=== PATIENT | female | born 1935 | race Caucasian/White ===

== ENCOUNTER → 2016-09-26 | Outpatient (CLI) | payer OTHER, BC ==
[~2016-09-26] MED LIST: ACET-1138 PO; ACET-1256 PO; ASPEC81 PO; ATOR10TA88 PO; ATV1 PO; CALCTAB7 PO; CEPH500C2 PO; CLB/200 PO; CLB200 PO; CLTP PO; COEN1CAP17 PO; CRAN1CAP15 PO; GABA-113 PO; LISI-461 PO; LORA-741 PO; MULT-506 PO; MULTCAP7 PO; OMEG10007 PO; ONDA4TAB10 SL; ONDA8TAB6 PO; OXYC1TAB3 PO; OXYSR10 PO; RXC5 PO; TRAM-10 PO; TRIA1SPR4 INH; ZNTT/150 PO
[2016-09-26 18:36] LABS: CHOLESTEROL/HDL RATIO 1.9
== END | disposition home or self-care (01) ==
LOC: C.LABMFLN 12:05
PROVIDERS: ATTEND Family Medicine
DX: E78.5 Hyperlipidemia, unspecified (principal)

== ENCOUNTER → 2016-11-19 | Outpatient (CLI) | payer OTHER, BC ==
--- NOTE | 2016-11-20 14:42 | CODING QUERY NO DIAGNOSIS ---
TREATMENT RENDERED WITHOUT A DIAGNOSIS 36 To promote full compliance with coding requirements relating to patient care, physician participation is requested in all cases of administrative manager uncertainty. Please assist us with providing a diagnosis/symptom for the test(s) below: A diagnosis/symptom was not documented on your Order. A valid diagnosis/symptom is required to bill all insurances. Please remember that we are unable to code a diagnosis of rule out, probable, possible, questionable, or suspected. DOS 11/19/16 Tests that require a diagnosis: * CBC W/AUTO DIFF DIAGNOSIS: * ALBUMIN DIAGNOSIS: * PARTIAL RENAL PROFILE DIAGNOSIS: * PTT DIAGNOSIS: * UA CLEAN CATCH DIAGNOSIS: * HEMOGLOBIN A1C DIAGNOSIS: * URINE CULTURE DIAGNOSIS: Provider Signature: Date: Thank you Corie [facility] Once completed, please kindly fax back to [phone] For questions please call [phone]
--- NOTE | 2016-12-01 14:14 | CODING QUERY MEDICAL NECESSITY ---
CQSUPPORTING DIAGNOSIS NEEDED A supporting diagnosis is required for the test/procedure performed on this patient in order for us to be reimbursed by the patient's insurance. Please provide a supporting diagnosis for the following test/procedure listed below next to the test name along with your signature. *If there is no additional diagnosis for this patient that would support the following test/procedure please document that below next to the test/procedure. Test(s)/Procedure(s) that require a supporting diagnosis: DOS 11/19/16 GLYCATED HEMOGLOBIN TEST URINE CULTURE TEST TEST ORDERED BY VINITA SMITH Provider Signature: Date: Thank you [facility] Once completed, please kindly fax back to [phone] For questions please call [phone]
== END | disposition home or self-care (01) ==
LOC: C.LABMFLN 11:21
PROVIDERS: ATTEND Orthopaedic Surgery
DX: Z01.818 Encounter for other preprocedural examination (principal)

== ENCOUNTER → 2016-12-04 | Outpatient (CLI) | payer OTHER, BC ==
--- NOTE | 2016-12-18 07:33 | History & Physical Bridge Note ---
H&P Re-Evaluation Bridge Note: I have examined the patient, reviewed the History & Physical and in the interval since the performance of the History & Physical I have noted the following changes of clinical significance: No changes noted
== END | disposition home or self-care (01) ==
LOC: C.LABMFLN 08:31
PROVIDERS: ATTEND Family Medicine
DX: N39.0 Urinary tract infection, site not specified (principal)

== ENCOUNTER 2016-12-18 10:21 | Inpatient (IN) | payer OTHER, BC ==
[2016-11-19 18:04] LABS: BASO % 0.1 %; BASO ABS # 0.01 K/uL (0-0.2); COMPLETE YES; EOS % 2.9 %; HEMATOCRIT 39.3 % (37-47); IG% 0.1 %; LYMPH % 23.1 %; LYMPH ABS # 1.84 K/uL (1.2-3.4); MEAN CELL VOLUME 87.5 fL (80-100); MEAN CORPUSCULAR HEMOGLOBIN 29.6 pg (25-34); MEAN CORPUSCULAR HGB CONC 33.8 g/dl (32-36); MEAN PLATELET VOLUME 9.2 fL (7.4-10.4); MONO % 7.5 %; NEUT % 66.3 %; PLATELET COUNT 195 K/uL (130-400); RED BLOOD COUNT 4.49 M/uL (4.2-5.4); URINE APPEARANCE CLEAR (CLEAR); URINE BILIRUBIN NEG (NEG); URINE COLOR DK YELLOW; URINE EPITHELIAL CELL AUTO 0-5 /lpf (0-5); URINE NITRITE NEG (NEG); URINE PH 6.5 (4.5-7.5); URINE SPECIFIC GRAVITY 1.001 (1.000-1.030); UROBILINOGEN NEG (NEG); WHITE BLOOD COUNT 7.95 K/uL (4.8-10.8)
[2016-11-19 18:05] LABS: PARTIAL THROMBOPLASTIN RATIO 1.1; PROTHROMBIN TIME (PATIENT) 10.7 SECONDS (9.0-12.0)
[2016-11-19 18:07] LABS: BLOOD UREA NITROGEN 17 mg/dl (7-18); BUN/CREATININE RATIO 22.3 (10-20); CALCIUM 8.7 mg/dl (8.5-10.1); CARBON DIOXIDE 29 mmol/L (21-32); CHLORIDE 102 mmol/L (98-107); CREATININE 0.74 mg/dl (0.60-1.20); GLUCOSE 68 mg/dl (70-99); POTASSIUM 3.7 mmol/L (3.5-5.1); SODIUM 139 mmol/L (136-145)
[2016-11-19 18:15] LABS: MANUAL MICROSCOPIC REQUIRED? NO; REVIEW REQ? NO
[2016-11-20 06:06] LABS: ESTIMATED AVERAGE GLUCOSE 126 mg/dl; HA1C FLAG Normal (Normal)
[2016-12-08 08:21] VITALS: BMI 36.0
--- NOTE | 2016-12-08 10:22 | PAT Medication Instructions ---
Service Date Dec 08, 2016. Current Home Medication List Atorvastatin (Lipitor), 10 MG PO QAM Calcium/Vitamin D (Caltrate 600 Plus *), 1 TAB PO BID Celecoxib (Celebrex *), 200 MG PO QAM Coenzyme Q10 (Ubidecarenone) (Co Q 10), 100 MG PO QAM Cranberry-Vitamin C-Vitamin E (Cranberry), 1 TAB PO BID Fish Oil (Spring-3), 1 CAP PO QAM Gabapentin (Neurontin), 300 MG PO TID Lisinopril (Zestril), 10 MG PO HS Lorazepam (Ativan *), 0.5 MG PO DAILY PRN Multiple Vitamins W/ Minerals (Eye Vitamins), 1 TAB PO QAM Multivitamin (Multivitamin), 1 TAB PO QAM Oxycodone Ir (Roxicodone Ir), 5 MG PO Q4H PRN for Severe Pain Ranitidine (Zantac), 150 MG PO BID Tramadol (Ultram), 50 MG PO Q8H PRN for Pain Triamcinolone Acetonide (Nasal (Nasacort Allergy 24Hr), 1 SPRAY INH HS Medication Instructions For Your Scheduled Surgery - Hold the following medications 2 weeks prior to surgery: Coenzyme Q10 (Ubidecarenone) (Co Q 10), 100 MG PO QAM Cranberry-Vitamin C-Vitamin E (Cranberry), 1 TAB PO BID Fish Oil (Spring-3), 1 CAP PO QAM - Hold the following medications per surgeon's instructions: Celecoxib (Celebrex *), 200 MG PO QAM - Hold the following medications the morning of surgery: Calcium/Vitamin D (Caltrate 600 Plus *), 1 TAB PO BID Multiple Vitamins W/ Minerals (Eye Vitamins), 1 TAB PO QAM Multivitamin (Multivitamin), 1 TAB PO QAM - Take the following medications the morning of surgery with a sip of water: Atorvastatin (Lipitor), 10 MG PO QAM Ranitidine (Zantac), 150 MG PO BID Gabapentin (Neurontin), 300 MG PO TID Oxycodone Ir (Roxicodone Ir), 5 MG PO Q4H PRN for Severe Pain (may take if needed up to 4 hours prior to surgery) Tramadol (Ultram), 50 MG PO Q8H PRN for Pain (may take if needed up to 4 hours prior to surgery) Lorazepam (Ativan *), 0.5 MG PO DAILY PRN - Take the following medications as scheduled the night before surgery: Calcium/Vitamin D (Caltrate 600 Plus *), 1 TAB PO BID Ranitidine (Zantac), 150 MG PO BID Gabapentin (Neurontin), 300 MG PO TID Oxycodone Ir (Roxicodone Ir), 5 MG PO Q4H PRN for Severe Pain Tramadol (Ultram), 50 MG PO Q8H PRN for Pain Lorazepam (Ativan *), 0.5 MG PO DAILY PRN Triamcinolone Acetonide (Nasal (Nasacort Allergy 24Hr), 1 SPRAY INH HS - Do not take the following medications the night before surgery: Lisinopril (Zestril), 10 MG PO HS If you have any questions please call us at [phone] or [phone] or [phone]
--- NOTE | 2016-12-17 12:44 | HISTORY & PHYSICAL EXAMINATION ---
DATE OF ADMISSION: 12/18/2016 CHIEF COMPLAINT: Left knee pain. HISTORY OF PRESENT ILLNESS: The patient is an 81-year-old female with known severe osteoarthritis about her right knee. She had a previous successful left total knee arthroplasty approximately 7 years ago. She does complain of some pes anserinus symptoms about the left knee which will be injected at the time of her right knee surgery. She has had previous corticosteroid injections in her right knee and now desires to proceed with right total knee arthroplasty. PAST MEDICAL HISTORY: Hypertension, depression, esophageal reflux, hyperlipidemia, osteoarthritis. PAST SURGICAL HISTORY: Left knee as above, cholecystectomy, lumbar laminectomy, venous stripping. MEDICATIONS: Nasonex 50 mcg 2 sprays each nostril once daily, lisinopril 10 mg daily, ranitidine HCL 150 mg twice daily, lorazepam 1 mg daily p.r.n., Celebrex 200 mg daily, tramadol 50 mg 4 times daily p.r.n., VESIcare 5 mg daily, atorvastatin calcium 10 mg daily, CoQ10 100 mg daily, fish oil 1000 mg daily, gabapentin 300 mg 3 times daily, oxycodone 5 mg q.i.d. p.r.n., calcium plus D twice daily, cranberry 500 mg p.o. b.i.d., multivitamin daily. ALLERGIES: BIAXIN, AMOXICILLIN. SOCIAL HISTORY AND REVIEW OF SYSTEMS: Noncontributory. PHYSICAL EXAMINATION: GENERAL: Well-nourished, well-developed elderly female who appears her stated age. HEAD, EYES, EARS, NOSE, AND THROAT: Normocephalic, atraumatic, extraocular movements intact, oropharynx pink and moist. NECK: Supple without adenopathy. LUNGS: Clear to auscultation bilaterally. HEART: Regular rate and rhythm. ABDOMEN: Soft, nontender, nondistended. EXTREMITIES: The upper extremity within normal limits. The patient walks with an obvious antalgic gait. She has a valgus appearing knee. Her range of motion from 0-110 degrees. X-RAYS: X-rays were reviewed. She has a valgus aligned knee. She has bone on bone arthritis of the lateral compartment. She has moderate osteophyte formation about the patellofemoral joint as well. ASSESSMENT: Right knee degenerative joint disease. PLAN: Risks versus benefits were discussed. Consent was obtained. The patient's primary care physician is Dr. Mercedes Barton from [facility]. Will proceed with right total knee arthroplasty and left knee pes anserine bursa injection upon preoperative workup and medical clearance.
[~2016-12-18] VITALS: Ht 157.5 cm; Wt 90.9 kg
[2016-12-18] VITALS (7 sets, daily range): BP systolic 101–143; BP diastolic 61–71; PULSE 84–102; TEMP 36.3–37.1; O2SAT 90–97; Ht 157.5 cm; Wt 90.9 kg
[~2016-12-18 10:21] MED LIST changes: -ACET-1138 PO; -ACET-1256 PO; +ACETAMINOPHEN 500 MG TAB PO SCH; -ASPEC81 PO; +ATOR10TA82 PO; -ATOR10TA88 PO; +BUPIVACAINE 0.5 % 5 MG/1 ML PF 10ML VIAL ONE; -CALCTAB7 PO; -CEPH500C2 PO; -CLB/200 PO; +CLINDAMYCIN 600 MG/54 ML D5W 54 ML IV SCH; +CeleBREX 200 MG CAP PO SCH; +DEXAMETHASONE 4 MG TAB PO SCH; +FAMOTIDINE 20 MG TAB PO SCH; -GABA-113 PO; +GABAPENTIN 300 MG CAP PO SCH; +LACTATED RINGER'S 1000ML 1,000 ML IV SCH; +LACTATED RINGER'S 1000ML IV SCH; -LISI-461 PO; -LORA-741 PO; +METOCLOPRAMIDE HCL 10 MG TAB PO SCH; +MISSING PHYSICIAN SIGNATURE ON ORDER SCH; -MULT-506 PO; -MULTCAP7 PO; -ONDA4TAB10 SL; -ONDA8TAB6 PO; +OXYCODONE HCL 10 MG TABCR (OXYCONTIN) PO SCH; -OXYSR10 PO; +ROPIVACAINE 5MG/ML 30 ML 150 MG, BUPIVACAINE/EPINEPHR 0.5% MPF 30 ML, KETOROLAC TROMETH... INFIL SCH; -RXC5 PO; -TRIA1SPR4 INH; -ZNTT/150 PO
[2016-12-18] MEDS ORDERED: MIDAZOLAM HCL 1 MG/ML 2ML VIAL ONE (10:43)
[2016-12-18] MEDS ORDERED: PROPOFOL IV EMULSION 10 MG/ML 20 ML VIAL IV ONE (10:43)
[2016-12-18] MEDS ORDERED: LIDOCAINE HCL 2% 2 ML VIAL (20MG/ML) ONE (10:43)
[2016-12-18] MEDS ORDERED: FENTANYL CITRATE INJ 50 MCG/1 ML 2 ML VIAL ONE (10:43)
[2016-12-18] MEDS ORDERED: GLYCOPYRROLATE INJ 0.2 MG/ML VIAL ONE (10:45)
[2016-12-18] MEDS ORDERED: GABAPENTIN 300 MG CAP PO ONE (10:50)
[2016-12-18] MEDS ORDERED: ORTHO JOINT ANESTHETIC ONE (11:58)
[2016-12-18] MEDS ORDERED: POVIDONE-IODINE OP SOLN 30 ML BTL ONE (11:58)
[2016-12-18] MEDS ORDERED: BACITRACIN 50000 UNIT VIAL ONE (11:59)
[2016-12-18] MEDS ORDERED: METHYLPREDNISOLONE ACETATE 80 MG/ML VIAL ONE (11:59)
[2016-12-18] MEDS ORDERED: BUPIVACAINE 0.5 % 5 MG/1 ML MPF 30ML VIAL ONE (12:00)
[2016-12-18] MEDS: TRANEXAMIC ACID INJ 1,000 MG in SODIUM CHLORIDE 0.9% 100ML 100 ML IV SCH ×2 (12:08→16:11)
[2016-12-18] MEDS ORDERED: FENTANYL CITRATE INJ 50 MCG/1 ML 2 ML VIAL IV PRN (12:15)
[2016-12-18] MEDS ORDERED: MEPERIDINE HCL 25 MG/ML CARP IV PRN (12:15)
[2016-12-18] MEDS ORDERED: MoRPHine SULFATE 10 MG/ML CARP/VIAL IV PRN ×2 (12:15→15:00)
[2016-12-18] MEDS ORDERED: ATROPINE SULFATE 0.1 MG/ML 5ML SYR IV PRN (12:15)
[2016-12-18] MEDS ORDERED: EpHEDrine SULFATE INJ 50 MG/ML AMP IV PRN (12:15)
[2016-12-18] MEDS ORDERED: ONDANSETRON INJ 2 MG/ML 2 ML VIAL IV PRN ×2 (12:15→14:30)
[2016-12-18] MEDS ORDERED: PHENYLEPHRINE 100MCG/ML 5ML SYR ONE (13:06)
--- NOTE | 2016-12-18 13:53 | [facility] Post Operative Brief Note ---
Immediate Operative Summary Operative Date Dec 18, 2016. Pre-Operative Diagnosis Right Knee Degenerative Joint Disease Post-Operative Diagnosis Right Knee Degenerative Joint Disease and Pes bursitis left knee Procedure(s) Performed Right Total Knee Arthroplasty, Left Knee Pes Bursa Injection Surgeon Dr. aPrish Nieto Sales Estimator Surgeon(s) Raimundo Rogers PA-C Estimated Blood Loss 10ML Findings Valgus deformity wirh severe djd Specimens A. Right Knee bone and tissue Disposition Recovery Room / PACU
[2016-12-18] MEDS ORDERED: ZOLPIDEM TARTRATE 5 MG TAB PO PRN (14:30)
[2016-12-18] MEDS ORDERED: METOCLOPRAMIDE HCL INJ 5 MG/ML 2 ML VIAL IV PRN (14:30)
[2016-12-18] MEDS ORDERED: LORAZEPAM 1 MG TAB PO PRN (14:30)
[2016-12-18] MEDS ORDERED: ALUMINUM/MAGNESIUM/SIMETH (MAALOX MAX) 30 ML UDC PO PRN (14:30)
[2016-12-18] MEDS ORDERED: MoRPHine SULFATE 2 MG/ML CARP IV PRN (14:30)
--- NOTE | 2016-12-18 14:41 | Anesthesiology Progress Note ---
Anesthesia Post Op Note Date & Time Dec 18, 2016 at 14:40 Vital Signs Pain Intensity: 0 Vital Signs Past 12 Hours Date Time Temp Pulse Resp B/P Pulse Ox O2 Delivery O2 Flow Rate FiO2 12/18/16 14:30 88 16 118/60 100 Mask 10 12/18/16 14:25 36.9 88 16 115/57 100 Mask 10 12/18/16 11:11 36.7 86 22 143/71 96 Room Air Notes Mental Status: alert / awake / arousable, participated in evaluation Pt Amnestic to Procedure: Yes Nausea / Vomiting: adequately controlled Pain: adequately controlled Airway Patency, RR, SpO2: stable & adequate BP & HR: stable & adequate Hydration State: stable & adequate Neuraxial Anesthesia: was administered, sensory block is resolving Anesthetic Complications: no major complications apparent
[2016-12-18] MEDS ORDERED: MoRPHine SULFATE 4 MG/ML 1 ML CARP\\VIAL IV PRN (15:00)
--- NOTE | 2016-12-18 15:03 | DIAGNOSTIC IMAGING REPORT ---
RIGHT KNEE 2 VIEWS History: Right total knee arthroplasty. Degenerative arthritis. Postop. FINDINGS: The patient is status post a right total knee arthroplasty. The hardware is intact. No fracture or dislocation. Skin carlos and surgical drains are in place. IMPRESSION: Right total knee arthroplasty. No evidence for hardware complication. Electronically signed by: Uri Andersen M.D. 12/18/2016 3:00 PM Dictated Date/Time: 12/18/2016 3:00 PM
--- NOTE | 2016-12-18 15:43 | OPERATIVE REPORT ---
DATE OF OPERATION: 12/18/2016 PREOPERATIVE DIAGNOSES: Degenerative joint disease, right knee and pes anserinus bursitis, left knee. POSTOPERATIVE DIAGNOSES: Degenerative joint disease, right knee and pes anserinus bursitis, left knee. PROCEDURE: Injection left knee and right total knee arthroplasty. SURGEON: Dr. Nieto. ANESTHESIA: Spinal. COMPLICATIONS: None. OPERATION AND FINDINGS: Following induction of spinal anesthesia, the patient's right leg was prepped and draped in the usual sterile manner. Limb was exsanguinated with an Esmarch bandage and tourniquet was inflated to 350 mmHg. A longitudinal incision was made anteriorly. Subcutaneous tissue was sharply dissected. Electrocautery was used for hemostasis. Prepatellar bursa was incised and median parapatellar incision was performed. Patella was everted and the knee was flexed. Fat pad was removed to aid in visualization and the anterior and posterior cruciate ligaments were removed. The medial face of the tibia was cleared of soft tissue first with a Bovie and a Diallo elevator. This tissue was retracted posteriorly using a blunt Hohmann. A Valdovinos retractor was used to expose the synovium above on the anterior aspect of the femur and this was removed down to bone. The PSI guide was placed on the distal femur and two pins were placed anteriorly and kept in position and two additional pins were placed distally and removed. The distal femoral cutting block was placed in position and the distal femoral cut was used in the +0 setting. Next, the cutting block was removed and the Femoral size 3 block was placed in the distal end of the femur. Care was taken to ensure appropriate external rotation and feeler gauge was used to ensure no notching would occur. The femoral block was centered on the distal femur and in the medial and lateral direction and was fixed using two bone screws. The gold pins were then removed. The oscillating saw was used to create the bone cuts and the distal femoral cutting block was removed and the reciprocating saw was used to further trim the femoral cuts as well as a deep in the area for the trochlear groove. Next, posterior condyle remnants were removed. Following this, a meniscal clamp and knife were utilized to remove the anterior portion of both medial and lateral meniscus. The proximal tibia PSI guide was placed into position and the proximal tibial cutting guide was screwed into position. The extra medullary alignment guide was utilized to ensure appropriate alignment. The proximal tibia was cut and the proximal tibial cutting block was removed and this bone fragment was removed. The appropriate guide was used to perform the notch cut on the distal femur and a lamina screedman and a cochlear knife were utilized to finish both medial and lateral meniscectomies to remove any remnants of the posterior or anterior cruciate ligaments. Following this, the distal femoral component was impacted into position and blunt Karl was used to sublux the tibia anteriorly. The proximal tibia was sized and a tibial size 3 tibial tray was chosen as the size to be used. This was put into position and appropriate external rotation and a double check with extramedullary alignment guide was performed. The canal for the tibial stem was prepared first with a 17 mm drill and then the punch and a mallet and the trial tibial poly was placed. A tibial poly 3 was chosen the size to be used. It was brought to extension and the patella was prepared with the patellar reamer. A patella size 33 component was chosen the size to be used. The trial component was placed and knee was taken through a full range of motion and there was found to be no lateral subluxation of the tibia. No lateral release was required. The trials were all removed. The final components were obtained and assembled. Cement was mixed. The knee was thoroughly irrigated and the ortho mix was injected about the knee joint. The final components were cemented into position. After thoroughly suctioning and drying the bone ends, all excess cement was removed. The knee was held in extension while the cement hardened. The wound was irrigated and closed over a Hemovac drain. #1 Vicryl was used to close the extensor mechanism. Subcutaneous tissues closed using 0 Dexon. Skin was closed with carlos. Sterile dressing of Adaptic, 4 x 4s, sterile Webril, and Jesus Manuel was applied. The patient tolerated the procedure well. ADDENDUM: Prior to beginning the right total knee, the pes anserine bursa area of the left knee was injected with 2 mL of Depo-Medrol and 3 mL of Marcaine. I attest to the content of the Intraoperative Record and any orders documented therein. Any exceptions are noted below. HAIDER
--- NOTE | 2016-12-18 16:26 | Medical Consult ---
Consultation Date of Consultation: Dec 18, 2016. Attending Physician: Parish Nieto M.D. Reason for Consultation: Medical management History of Present Illness Patient is a pleasant 81 y/o female, s/p injection of left knee and right total knee arthroplasty done by Dr. Nieto on 12/18. Patient states she is currently feeling well. Denies any pain. No BM/flatus post op. Patient denies any fever, chills, sweats, lightheadedness, dizziness, vision changes, CP, palpitations, edema, SOB, wheezing, cough, abdominal pain, nausea, vomiting, diarrhea, urinary symptoms, melena, numbness/tingling, weakness, muscle/joint pain, anxiety/depression, active bleeding, or new skin discoloration/changes. Past Medical/Surgical History Medical hx: 1. Hypertension 2. Depression/anxiety 3. GERD 4. Hyperlipidemia 5. Osteoarthritis Surgical hx: 1. Cholecystectomy, 2. Lumbar laminectomy 3. Venous stripping. Family History 1. Heart disease Social History Smoking Status: Never Smoker Alcohol Use: none Marital Status: Allergies Coded Allergies: Sulfamethoxazole w/Trimethoprim (Verified Allergy, Intermediate, chest pain, 12/18/16) Amoxicillin (Verified Allergy, Mild, funny felling in feet and was told she had a reaction, 12/08/16) reaction was in dental office Clarithromycin (Verified Allergy, Unknown, CHEST PAIN, 12/08/16) POLLEN (Verified Allergy, Unknown, hayfever, 12/08/16) Home Medications Reported Home Medications Medications Dose Route/Sig Max Daily Dose Days Date Category Eye Vitamins (Multiple Vitamins W/ Minerals) 1 Cap Cap 1 Tab PO QAM 12/08/16 Reported Zantac (Ranitidine HCl) 150 Mg Tab 150 Mg PO BID 06/30/16 Reported Ultram (Tramadol HCl) 50 Mg Tab 50 Mg PO Q8H PRN 06/30/16 Reported Roxicodone Ir (Oxycodone HCl) 5 Mg Tab 5 Mg PO Q4H PRN 06/30/16 Reported Nasacort Allergy 24Hr (Triamcinolone Acetonide (Nasal) 55 Mcg/Act Spr 1 [place] INH HS 06/30/16 Reported Neurontin (Gabapentin) 300 Mg Cap 300 Mg PO TID 06/30/16 Reported Cranberry (Cranberry-Vitamin C-Vitamin E) 1 Cap Cap 1 Tab PO BID 06/30/16 Reported Co Q 10 (Coenzyme Q10 (Ubidecarenone)) 100 Mg Cap 100 Mg PO QAM 06/30/16 Reported Whitney-3 (Fish Oil) 1 Ea Cap 1 Cap PO QAM 02/22/09 Reported Caltrate 600 Plus * (Calcium/Vitamin D) Tab 1 Tab PO BID 02/22/09 Reported Multivitamin (Multivitamins) Tab 1 Tab PO QAM 02/22/09 Reported Ativan * (Lorazepam) 1 Mg Tab 0.5 Mg PO DAILY PRN 02/22/09 Reported Lipitor (Atorvastatin Calcium) 10 Mg Tab 10 Mg PO QAM 02/22/09 Reported Zestril (Lisinopril) 10 Mg Tab 10 Mg PO HS 02/22/09 Reported Celebrex * (Celecoxib) 200 Mg Cap 200 Mg PO QAM 02/22/09 Reported Current Inpatient Medications Current Inpatient Medications Medications (Trade) Dose Ordered Sig/Ryan Route Start Time Stop Time Status Last Admin Dose Admin Clindamycin Phosphate 54 ml @ 100 mls/hr PREOP IV 12/18/16 06:00 12/18/16 18:00 12/18/16 12:39 100 MLS/HR Lactated Ringer's (Lr 1000ml) 1,000 ml @ 15 mls/hr Q24H IV 12/18/16 06:00 12/19/16 05:59 12/18/16 11:10 15 MLS/HR Acetaminophen (Tylenol Tab) 1,000 mg PREOP PO 12/18/16 06:00 12/18/16 18:00 12/18/16 11:32 1,000 MG Celecoxib (CeleBREX CAP) 200 mg PREOP PO 12/18/16 06:00 12/18/16 18:00 12/18/16 11:33 200 MG Dexamethasone (Decadron Tab) 8 mg PREOP PO 12/18/16 06:00 12/18/16 18:00 12/18/16 11:31 8 MG Famotidine (Pepcid Tab) 20 mg PREOP PO 12/18/16 06:00 12/18/16 18:00 12/18/16 11:32 20 MG Metoclopramide HCl (Reglan Tab) 10 mg PREOP PO 12/18/16 06:00 4/6/17 18:00 12/18/16 11:32 10 MG Oxycodone HCl 10 mg 10 mg PREOP PO 12/18/16 06:00 12/18/16 18:00 12/18/16 11:30 10 MG Tranexamic Acid 1000 mg/Sodium Chloride 110 ml @ 660 mls/hr TODAY@06,0630 IV 12/18/16 06:00 12/18/16 18:00 12/18/16 12:08 660 MLS/HR Lactated Ringer's (Lr 1000ml) 1,000 ml @ 60 mls/hr [id number] IV 12/18/16 06:00 12/18/16 22:39 Fentanyl Citrate (Fentanyl Inj) 25 mcg Q5M PRN IV 12/18/16 12:15 12/18/16 17:15 Meperidine HCl (Demerol Inj) 12.5 mg Q5M PRN IV 12/18/16 12:15 12/18/16 17:15 Morphine Sulfate (MoRPHine SULFATE INJ) 2 mg Q5M PRN IV 12/18/16 12:15 12/18/16 17:15 Ondansetron HCl (Zofran Inj) 4 mg ONE PRN IV 12/18/16 12:15 12/18/16 17:15 Atropine Sulfate 0.5 mg 0.5 mg Q1M PRN IV 12/18/16 12:15 12/18/16 17:15 Potassium Chloride/Dextrose/ Sod Cl 1,000 ml @ 100 mls/hr Q10H IV 12/18/16 16:00 12/19/16 15:59 Clindamycin Phosphate/Dextrose (Cleocin Iv/ Dextrose Add-[place] 50ML) 54 ml @ 100 mls/hr Q8H IV 12/18/16 20:00 12/19/16 04:33 Ketorolac Tromethamine (Toradol Inj) 15 mg Q6H IV. 12/18/16 18:00 12/19/16 17:59 Oxycodone HCl (Roxicodone Immediate Rel Tab) 1 TABLET FOR PAIN RATING... Q4H PRN PO 12/18/16 14:30 01/01/17 14:29 Oxycodone HCl (Oxycontin Tab) 10 mg Q12 PO 12/18/16 21:00 01/01/17 20:59 Morphine Sulfate (MoRPHine SULFATE INJ) 2 mg Q2HWA PRN IV 12/18/16 14:30 01/01/17 14:29 Acetaminophen (Tylenol Tab) 1,000 mg Q8H PO 12/18/16 20:00 01/17/17 19:59 Magnesium Hydroxide (Milk Of Magnesia Susp) 30 ml Q6H PRN PO 12/18/16 14:30 01/17/17 14:29 Docusate Sodium (coLACE CAP) 100 mg BID PO 12/18/16 21:00 01/17/17 20:59 Diphenhydramine HCl (Benadryl Cap) 25 mg Q8H PRN PO 12/18/16 14:30 01/17/17 14:29 Al Hydrox/Mg Hydrox/Simethicone (Maalox Max Susp) 15 ml Q4H PRN PO 12/18/16 14:30 01/17/17 14:29 Zolpidem Tartrate (Ambien Tab) 5 mg HSZ PRN PO 12/18/16 14:30 01/17/17 14:29 Multivitamins (Multivitamin Tab) 1 tab QAM PO 12/19/16 09:00 01/18/17 08:59 Ondansetron HCl (Zofran Inj) 4 mg Q6H PRN IV 12/18/16 14:30 01/17/17 14:29 Metoclopramide HCl (Reglan Inj) 10 mg Q6H PRN IV 12/18/16 14:30 01/17/17 14:29 Ferrous Gluconate (Ferrous Gluconate Tab) 324 mg TIDM PO 12/18/16 17:45 01/17/17 17:59 Pantoprazole Sodium 40 mg 40 mg QAM PO 12/19/16 09:00 01/18/17 08:59 Dexamethasone Sodium Phosphate/ Syringe (Decadron Inj/ Syringe) 2.5 ml @ 1 mls/min ONE ONCE IV 12/19/16 07:30 12/19/16 07:32 Aspirin (Ecotrin Tab) 81 mg BID PO 12/18/16 21:00 01/17/17 20:59 Atorvastatin Calcium (Lipitor Tab) 10 mg QAM PO 12/19/16 09:00 01/18/17 08:59 Calcium/Vitamin D (Caltrate Plus Tab) 1 tab BID PO 12/18/16 21:00 01/17/17 20:59 Gabapentin (Neurontin Cap) 300 mg TID PO 12/18/16 21:00 01/17/17 20:59 Lisinopril (Zestril Tab) 10 mg HS PO 12/18/16 21:00 01/17/17 20:59 Lorazepam (Ativan Tab) 0.5 mg Q8 PRN PO 12/18/16 14:30 01/17/17 14:29 Celecoxib (CeleBREX CAP) 200 mg BID PO 12/18/16 21:00 01/17/17 20:59 Future Hold Morphine Sulfate (MoRPHine SULFATE INJ) 4 mg Q2HWA PRN IV 12/18/16 15:00 01/01/17 14:59 Morphine Sulfate (MoRPHine SULFATE INJ) 6 mg Q2HWA PRN IV 12/18/16 15:00 01/01/17 14:59 Physical Exam Date Time Temp Pulse Resp B/P Pulse Ox O2 Delivery O2 Flow Rate FiO2 12/18/16 15:30 89 16 116/58 97 Nasal Cannula 3 12/18/16 15:15 95 16 119/59 97 Nasal Cannula 3 12/18/16 15:00 90 16 108/59 97 Nasal Cannula 3 12/18/16 14:45 36.8 90 16 112/56 95 Nasal Cannula 3 12/18/16 14:40 88 16 116/57 97 Nasal Cannula 3 12/18/16 14:30 88 16 118/60 100 Mask 10 12/18/16 14:25 36.9 88 16 115/57 100 Mask 10 12/18/16 11:11 36.7 86 22 143/71 96 Room Air General Appearance: no apparent distress Head: normocephalic, atraumatic Eyes: normal inspection, PERRL ENT: hearing grossly normal Neck: supple Respiratory/Chest: lungs clear, no respiratory distress, no accessory muscle use Cardiovascular: regular rate, rhythm Abdomen/GI: normal bowel sounds, non tender, soft Extremities/Musculoskelatal: no calf tenderness, no pedal edema Neurologic/Psych: alert, normal mood/affect Skin: normal color, warm/dry, no rash Assessment & Plan 81 y/o female, s/p injection of left knee and right total knee arthroplasty done by Dr. Nieto on 12/18. - DVT prophylaxis, pain management, and PT/OT as per primary team - Follow CBC and PRP HTN: - Hold Lisinopril 10 mg daily pending PRP tomorrow AM - Hydralazine PRN h/o depression/anxiety: Continue Ativan PRN GERD: Protonix, resume Zantac at discharge Hyperlipidemia: Continue Lipitor 10 mg daily DVT prophylaxis: As per primary team Code Status: LEVEL I, FULL Dispo: Discharge as per primary team Thank you for this consultation. We will continue to follow throughout hospital stay. PA Physician Supervision Note: I interviewed and examined the patient. Discussed with Alicja US and agree with findings and plan as documented in the note. Any exceptions or clarifications are listed here: None THis pt is doing well after knee replacement holding bill i on first post op day vitals stable exam car regular lungs clear follow for bp and post op anemia Documented By: Pavan Jaramillo
[2016-12-18] MEDS ORDERED: HydrALAZINE HCL 20 MG/ML VIAL IV. PRN (16:30)
[2016-12-18] MEDS: D5W AND 1/2NSS + 20MEQ KCL 1,000 ML IV SCH (16:37)
[2016-12-18] MEDS: FERROUS GLUCONATE 324 MG TAB PO SCH (18:02)
[2016-12-18] MEDS: KETOROLAC TROMETHAMINE 15 MG/ML VIAL IV. SCH ×2 (18:03→23:32)
[2016-12-18] MEDS: OXYCODONE HCL IR 5 MG TAB (IMMEDIATE RELEASE) PO PRN ×2 (18:46→23:32)
[2016-12-18] MEDS: CLINDAMYCIN IV 600 MG in DEXTROSE 5% ADD-VANTAGE 50ML 50 ML IV SCH (19:43)
[2016-12-18] MEDS: ACETAMINOPHEN 500 MG TAB PO SCH (19:44)
[2016-12-18] MEDS: OXYCODONE HCL 10 MG TABCR (OXYCONTIN) PO SCH (20:30)
[2016-12-18] MEDS: ASPIRIN 81 MG ECTAB PO SCH (20:30)
[2016-12-18] MEDS: CALCIUM 600MG + VIT D 400 IU TAB PO SCH (20:30)
[2016-12-18] MEDS: GABAPENTIN 300 MG CAP PO SCH (20:30)
[2016-12-18] MEDS: DOCUSATE SODIUM 100 MG CAP PO SCH (20:31)
[2016-12-18] MEDS ORDERED: CeleBREX 200 MG CAP PO SCH (21:00)
[2016-12-18] MEDS ORDERED: LISINOPRIL 10 MG TAB PO SCH (21:00)
[2016-12-19] MEDS: D5W AND 1/2NSS + 20MEQ KCL 1,000 ML IV SCH (01:14)
[2016-12-19] MEDS: CLINDAMYCIN IV 600 MG in DEXTROSE 5% ADD-VANTAGE 50ML 50 ML IV SCH (03:54)
[2016-12-19] MEDS: ACETAMINOPHEN 500 MG TAB PO SCH ×3 (03:55→20:05)
[2016-12-19 04:00] VITALS: BP 117/63; PULSE 71; TEMP 36.6; O2SAT 97
[2016-12-19 05:45] LABS: HEMATOCRIT 32.4 % (37-47); MEAN CELL VOLUME 86.9 fL (80-100); MEAN CORPUSCULAR HGB CONC 34.6 g/dl (32-36); PLATELET COUNT 182 K/uL (130-400); RED BLOOD COUNT 3.73 M/uL (4.2-5.4); WHITE BLOOD COUNT 10.68 K/uL (4.8-10.8)
[2016-12-19] MEDS: KETOROLAC TROMETHAMINE 15 MG/ML VIAL IV. SCH ×2 (06:10→11:40)
[2016-12-19 06:17] LABS: BUN/CREATININE RATIO 19.6 (10-20); CALCIUM 8.6 mg/dl (8.5-10.1); CREATININE 0.77 mg/dl (0.60-1.20); POTASSIUM 4.4 mmol/L (3.5-5.1)
[2016-12-19] MEDS ORDERED: DEXAMETHASONE INJ 10 MG in SYRINGE 0 ML IV ONE (07:30)
[2016-12-19 07:50] VITALS: BP 115/69; PULSE 70; TEMP 36.3; O2SAT 96
[2016-12-19] MEDS: OXYCODONE HCL 10 MG TABCR (OXYCONTIN) PO SCH ×2 (07:51→20:03)
[2016-12-19] MEDS: DOCUSATE SODIUM 100 MG CAP PO SCH ×2 (07:52→20:05)
[2016-12-19] MEDS: FERROUS GLUCONATE 324 MG TAB PO SCH ×3 (07:52→17:51)
[2016-12-19] MEDS: CALCIUM 600MG + VIT D 400 IU TAB PO SCH ×2 (07:52→20:05)
[2016-12-19] MEDS: ATORVASTATIN 10 MG TAB PO SCH (07:52)
[2016-12-19] MEDS: ASPIRIN 81 MG ECTAB PO SCH ×2 (07:52→20:04)
[2016-12-19] MEDS: GABAPENTIN 300 MG CAP PO SCH ×3 (07:52→20:03)
[2016-12-19] MEDS: PANTOprazole SOD 40 MG TAB PO SCH (07:53)
[2016-12-19] MEDS: MULTIVITAMIN TAB PO SCH (07:53)
--- NOTE | 2016-12-19 07:54 | Orthopedic Progress Note ---
Orthopedic Progress Note Date of Service Dec 19, 2016. Subjective Post OP Day: 1 Reports: feeling well Objective N/V intact, dressing C/D/I (Hemovac in place), toes mobile Date Time Temp Pulse Resp B/P Pulse Ox O2 Delivery O2 Flow Rate FiO2 12/19/16 04:00 36.6 71 18 117/63 97 Room Air 12/18/16 23:30 Room Air 12/18/16 23:10 37.1 84 18 101/61 90 Room Air 12/18/16 18:45 36.6 102 18 119/64 92 Room Air 12/18/16 17:45 36.3 97 16 108/62 97 Nasal Cannula 2.0 12/18/16 16:45 36.6 84 18 105/63 95 Nasal Cannula 2.0 12/18/16 16:29 Nasal Cannula 2.0 12/18/16 16:29 Nasal Cannula 2.0 12/18/16 16:15 36.5 88 18 104/62 96 Nasal Cannula 2.0 12/18/16 15:45 36.9 95 16 123/66 95 Nasal Cannula 2.0 12/18/16 15:30 89 16 116/58 97 Nasal Cannula 3 12/18/16 15:15 95 16 119/59 97 Nasal Cannula 3 12/18/16 15:00 90 16 108/59 97 Nasal Cannula 3 12/18/16 14:45 36.8 90 16 112/56 95 Nasal Cannula 3 12/18/16 14:40 88 16 116/57 97 Nasal Cannula 3 12/18/16 14:30 88 16 118/60 100 Mask 10 12/18/16 14:25 36.9 88 16 115/57 100 Mask 10 12/18/16 11:11 36.7 86 22 143/71 96 Room Air Laboratory Results 24 Hours: Test 12/19/16 05:31 Hematocrit 32.4 % Hemoglobin 11.2 g/dL Assessment & Plan Assessment: 81 yo female stable POD #1 s/p right TKA Plan: 1. Med management 2. DVT prophylaxis- ASA, TEDs, SCDs 3. PT/OT 4. D/C planning- pt interested in [place]
--- NOTE | 2016-12-19 08:25 | Anesthesiology Progress Note ---
Anesthesia Post Op Note Date & Time Dec 19, 2016 at 08:24 Vital Signs Pain Intensity: 4.0 Vital Signs Past 12 Hours Date Time Temp Pulse Resp B/P Pulse Ox O2 Delivery O2 Flow Rate FiO2 12/19/16 08:00 Room Air 12/19/16 07:50 36.3 70 19 115/69 96 Room Air 12/19/16 04:00 36.6 71 18 117/63 97 Room Air 12/18/16 23:30 Room Air 12/18/16 23:10 37.1 84 18 101/61 90 Room Air Notes Mental Status: alert / awake / arousable, participated in evaluation Pt Amnestic to Procedure: Yes Nausea / Vomiting: adequately controlled Pain: adequately controlled Airway Patency, RR, SpO2: stable & adequate BP & HR: stable & adequate Hydration State: stable & adequate Neuraxial Anesthesia: sensory block resolved Anesthetic Complications: no major complications apparent
[2016-12-19 11:36] VITALS: BP 120/74; PULSE 77; O2SAT 94
--- NOTE | 2016-12-19 12:16 | Progress Note ---
Subjective Date of Service: Dec 19, 2016. Subjective Pt evaluation today including: conversation w/ patient, physical exam, chart review Review of Systems Respiratory: No cough, No dyspnea at rest, No dyspnea on exertion, No hemoptysis, No problem reported, No see HPI, No shortness of breath, No sputum, No wheezing Cardiac: No PND, No chest pain, No claudication, No edema, No orthopnea, No palpitations, No problem reported, No see HPI Abdomen: No GI bleeding, No constipation, No diarrhea, No nausea, No pain, No problem reported, No see HPI, No vomiting Medications Medications (Trade) Dose Ordered Sig/Ryan Route Start Time Stop Time Status Last Admin Dose Admin Potassium Chloride/Dextrose/ Sod Cl 1,000 ml @ 100 mls/hr Q10H IV 12/18/16 16:00 12/19/16 07:55 DC 12/19/16 01:14 100 MLS/HR Clindamycin Phosphate/Dextrose (Cleocin Iv/ Dextrose Add-[place] 50ML) 54 ml @ 100 mls/hr Q8H IV 12/18/16 20:00 12/19/16 04:33 DC 12/19/16 03:54 100 MLS/HR Ketorolac Tromethamine (Toradol Inj) 15 mg Q6H IV. 12/18/16 18:00 12/19/16 17:59 12/19/16 11:40 15 MG Oxycodone HCl (Roxicodone Immediate Rel Tab) 1 TABLET FOR PAIN RATING... Q4H PRN PO 12/18/16 14:30 01/01/17 14:29 12/18/16 23:32 10 MG Oxycodone HCl (Oxycontin Tab) 10 mg Q12 PO 12/18/16 21:00 01/01/17 20:59 12/19/16 07:51 10 MG Morphine Sulfate (MoRPHine SULFATE INJ) 2 mg Q2HWA PRN IV 12/18/16 14:30 01/01/17 14:29 12/18/16 21:34 2 MG Acetaminophen (Tylenol Tab) 1,000 mg Q8H PO 12/18/16 20:00 01/17/17 19:59 12/19/16 11:40 1,000 MG Docusate Sodium (coLACE CAP) 100 mg BID PO 12/18/16 21:00 01/17/17 20:59 12/19/16 07:52 100 MG Multivitamins (Multivitamin Tab) 1 tab QAM PO 12/19/16 09:00 01/18/17 08:59 12/19/16 07:53 1 TAB Ferrous Gluconate (Ferrous Gluconate Tab) 324 mg TIDM PO 12/18/16 17:45 01/17/17 17:59 12/19/16 11:41 324 MG Pantoprazole Sodium 40 mg 40 mg QAM PO 12/19/16 09:00 01/18/17 08:59 12/19/16 07:53 40 MG Dexamethasone Sodium Phosphate/ Syringe (Decadron Inj/ Syringe) 2.5 ml @ 1 mls/min ONE ONCE IV 12/19/16 07:30 12/19/16 07:32 DC 12/19/16 07:51 1 MLS/MIN Aspirin (Ecotrin Tab) 81 mg BID PO 12/18/16 21:00 01/17/17 20:59 12/19/16 07:52 81 MG Atorvastatin Calcium (Lipitor Tab) 10 mg QAM PO 12/19/16 09:00 01/18/17 08:59 12/19/16 07:52 10 MG Calcium/Vitamin D (Caltrate Plus Tab) 1 tab BID PO 12/18/16 21:00 01/17/17 20:59 12/19/16 07:52 1 TAB Gabapentin (Neurontin Cap) 300 mg TID PO 12/18/16 21:00 01/17/17 20:59 12/19/16 07:52 300 MG Lorazepam (Ativan Tab) 0.5 mg Q8 PRN PO 12/18/16 14:30 01/17/17 14:29 12/18/16 22:19 0.5 MG Morphine Sulfate (MoRPHine SULFATE INJ) 4 mg Q2HWA PRN IV 12/18/16 15:00 01/01/17 14:59 12/19/16 01:17 4 MG Objective Vital Signs Date Time Temp Pulse Resp B/P Pulse Ox O2 Delivery O2 Flow Rate FiO2 12/19/16 11:36 77 94 12/19/16 08:00 Room Air 12/19/16 07:50 36.3 70 19 115/69 96 Room Air 12/19/16 04:00 36.6 71 18 117/63 97 Room Air 12/18/16 23:30 Room Air 12/18/16 23:10 37.1 84 18 101/61 90 Room Air 12/18/16 18:45 36.6 102 18 119/64 92 Room Air 12/18/16 17:45 36.3 97 16 108/62 97 Nasal Cannula 2.0 12/18/16 16:45 36.6 84 18 105/63 95 Nasal Cannula 2.0 12/18/16 16:29 Nasal Cannula 2.0 12/18/16 16:29 Nasal Cannula 2.0 12/18/16 16:15 36.5 88 18 104/62 96 Nasal Cannula 2.0 12/18/16 15:45 36.9 95 16 123/66 95 Nasal Cannula 2.0 12/18/16 15:30 89 16 116/58 97 Nasal Cannula 3 12/18/16 15:15 95 16 119/59 97 Nasal Cannula 3 12/18/16 15:00 90 16 108/59 97 Nasal Cannula 3 12/18/16 14:45 36.8 90 16 112/56 95 Nasal Cannula 3 12/18/16 14:40 88 16 116/57 97 Nasal Cannula 3 12/18/16 14:30 88 16 118/60 100 Mask 10 12/18/16 14:25 36.9 88 16 115/57 100 Mask 10 Physical Exam General Appearance: WD/WN Eyes: normal inspection ENT: normal ENT inspection Neck: supple, no JVD Respiratory/Chest: chest non-tender, lungs clear Cardiovascular: regular rate, rhythm, no edema, no murmur Abdomen: normal bowel sounds Extremities: + pertinent finding (right knee and leg in dressing) Neurologic/Psychiatric: pediatric physician assistant II-XII nml as tested, normal mood/affect, oriented x 3 Skin: normal color Laboratory Results Last 24 Hours Test 12/19/16 05:31 White Blood Count 10.68 K/uL Red Blood Count 3.73 M/uL Hemoglobin 11.2 g/dL Hematocrit 32.4 % Mean Corpuscular Volume 86.9 fL Mean Corpuscular Hemoglobin 30.0 pg Mean Corpuscular Hemoglobin Concent 34.6 g/dl RDW Standard Deviation 43.6 fL RDW Coefficient of Variation 13.6 % Platelet Count 182 K/uL Mean Platelet Volume 9.0 fL Sodium Level 139 mmol/L Potassium Level 4.4 mmol/L Chloride Level 106 mmol/L Carbon Dioxide Level 26 mmol/L Anion Gap 7.0 mmol/L Blood Urea Nitrogen 15 mg/dl Creatinine 0.77 mg/dl Est Creatinine Clear Calc Drug Dose 61.1 ml/min Estimated GFR () 84.5 Estimated GFR (Non- 72.9 BUN/Creatinine Ratio 19.6 Random Glucose 176 mg/dl Calcium Level 8.6 mg/dl Assessment and Plan s/p Right knee surgery Doing well from a medical standpoint. VS are stable. DVT prophylaxis per Ortho HTN Ok to resume SHANTA in hibitor. HLD On atorvastatin
--- NOTE | 2016-12-19 12:26 | Discharge Instructions ---
Discharge Instructions Date of Service Dec 19, 2016. 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 Additional Information Patient informed of condition: Yes Advance Directives: No DNR: Yes Level of Care: Skilled Communicable Disease: No Prognosis: Stable Jacinto Catheter: No Instructions / Follow-Up Instructions / Follow-Up ACTIVITY RECOMMENDATIONS: SELF CARE INSTRUCTIONS AFTER TOTAL KNEE REPLACEMENT A. You may need to continue a physical therapy program after discharge from the hospital. There are several options available to you. Your doctor will assist you in selecting the best one for you. 1. An out-patient facility 2 to 3 times a week for therapy or home therapy. 2. Continue working on all exercises taught to you in the hospital. Your goals should be to increase bending of your knee to 90 degrees and beyond and to fully straighten your knee. B. You may progress at your own pace from walking with a walker or crutches to a cane; then to no assistive devices. C. Make walking a part of your daily routine. Be up as much as comfortable with rest periods throughout the day. Rest with leg elevation is very important. Use the ice wrap frequently for the first 3-4 weeks. D. There are no restrictions on activities. You may ride in a car, shop, participate in inside sales executive and all social activities. E. Wear the long elastic stockings (JIM hose) 20 hours a day for 2 weeks after surgery. They can be removed several times a day for laundering and for a bath. F. You may shower, no tub baths until cleared by your doctor. SPECIAL CARE INSTRUCTIONS: VERY IMPORTANT TO READ AND REVIEW A. There are a few signs you need to watch for after you are home. Call [facility] if you notice any of the followin. Increased severe knee pain. Some pain is expected especially when you exercise. 2. Increased swelling in your leg or knee; pain or swelling of the calf muscle in either lower leg. 3. Any fluid drainage from the incision. 4. Shortness of breath or chest pain. B. Please call [facility] at if you have any concerns or questions about your operation or recovery. The doctor or his nurse will return your call promptly. C. You must take antibiotics before dental work, bladder, bowel or other surgery. Your doctor will provide you with a permanent care to carry describing this precaution. IMPORTANT: * REMEMBER TO TAKE ASPIRIN, 81 MG, TWICE DAILY FOR 4 WEEKS UNLESS OTHERWISE DIRECTED. THIS IS YOUR BLOOD THINNER. * HIGH RISK PATIENTS MAY BE PRESCRIBED A STRONGER BLOOD THINNER. THIS WILL BE PROVIDED AT DISCHARGE. * CALL IF INCREASED PAIN, REDNESS, DRAINAGE OR FEVER GREATER THAT 101. * WEAR JIM HOSE 20 HOURS PER DAY FOR 2 WEEKS. * Silverlon- This is a large adhesive bandage that contains silver ions. This helps your incision heal by fighting off bacteria and protecting it from the outside environment. You are permitted to shower with this dressing. This will remain on your incision for 7 days and then should be removed. Some visible blood or drainage through the dressing window is normal. If there is significant drainage or leaking noted before the 7 days notify your doctor's office immediately. Once removed, keep incision clean and dry. If there is any drainage or redness noted, please call your surgeon. . FOLLOW UP VISIT: If appointment is not already scheduled: Please call [facility] to make a follow-up appointment for 2 weeks after your surgery at . Current Hospital Diet Patient's current hospital diet: Regular Diet Discharge Diet Recommended Diet: Regular Diet Procedures Procedures Performed: Right Total Knee Arthroplasty, Left Knee Pes Bursa Injection Pending Studies Studies pending at discharge: no Physician Orders On Transfer Dressing Changes: As per Silverlon dressing instructions above Vital Signs: routine Laboratory Results Hemoglobin A1c Test 11/19/16 12:08 Range/Units Estimated Average Glucose 126 mg/dl Hemoglobin A1c 6.0 H 4.5-5.6 % Lipid Panel Test 09/26/16 15:57 Range/Units Triglycerides Level 135 0-150 mg/dl Cholesterol Level 162 0-200 mg/dl HDL Cholesterol 85 mg/dl Cholesterol/HDL Ratio 1.9 LDL Cholesterol, Calculated 50 mg/dl Medical Emergencies . Who to Call and When: Medical Emergencies: If at any time you feel your situation is an emergency, please call 911 immediately. . Non-Emergent Contact Non-Emergency issues call your: Surgeon Call Non-Emergent contact if: temperature is above 101.5, your pain is not controlled, your pain is worsening, wound has increased drainage, wound has increased redness . . "Provider Documentation" section prepared by Zack Lutz. Core Measure Problem Core Measures: None [place] Drug Monitoring Program Search Results: patient reviewed within database (Reviewed by Raimundo Rogers PA-C) , no issues identified
[2016-12-19] MEDS: OXYCODONE HCL IR 5 MG TAB (IMMEDIATE RELEASE) PO PRN ×2 (15:06→20:03)
[2016-12-19 15:10] VITALS: BP 110/64; PULSE 78; TEMP 36.8; O2SAT 94
[2016-12-19 23:35] VITALS: BP 144/81; PULSE 77; TEMP 36.8; O2SAT 95
[2016-12-20] MEDS: OXYCODONE HCL IR 5 MG TAB (IMMEDIATE RELEASE) PO PRN ×5 (00:41→20:29)
[2016-12-20] MEDS: ACETAMINOPHEN 500 MG TAB PO SCH ×3 (04:00→20:28)
--- NOTE | 2016-12-20 07:00 | Orthopedic Progress Note ---
Orthopedic Progress Note Date of Service Dec 20, 2016. Subjective Post OP Day: 2 Reports: feeling well, pain controlled w PO medications, Denies: SOB, calf pain , chest pain, complaints, light headedness, nausea / vomiting Objective calves soft nontender, N/V intact, capillary refill less than 2 sec., dressing C /D/I (silverlon intact), A&O x3, toes mobile Date Time Temp Pulse Resp B/P Pulse Ox O2 Delivery O2 Flow Rate FiO2 12/19/16 23:35 36.8 77 15 144/81 95 Room Air 12/19/16 20:00 Room Air 12/19/16 15:10 36.8 78 16 110/64 94 Room Air 12/19/16 11:36 77 94 12/19/16 08:00 Room Air 12/19/16 07:50 36.3 70 19 115/69 96 Room Air Assessment & Plan Assessment: 81 yo female stable POD #2 s/p right TKA, left knee pes bursa cortisone injection Plan: 1. Med management 2. DVT prophylaxis- ASA, TEDs, SCDs 3. PT/OT 4. D/C planning- pt interested in [place], will likely [facility] Discharge Planning DVT Prophylaxis: TEDs, SCDs, ASA Therapy: Physical Therapy
[2016-12-20] MEDS: FERROUS GLUCONATE 324 MG TAB PO SCH ×3 (07:59→17:56)
[2016-12-20] MEDS: GABAPENTIN 300 MG CAP PO SCH ×3 (08:00→20:31)
[2016-12-20] MEDS: ATORVASTATIN 10 MG TAB PO SCH (08:00)
[2016-12-20] MEDS: ASPIRIN 81 MG ECTAB PO SCH ×2 (08:00→20:31)
[2016-12-20] MEDS: CALCIUM 600MG + VIT D 400 IU TAB PO SCH ×2 (08:02→20:32)
[2016-12-20] MEDS: LISINOPRIL 10 MG TAB PO SCH (08:02)
[2016-12-20] MEDS: PANTOprazole SOD 40 MG TAB PO SCH (08:02)
[2016-12-20] MEDS: MULTIVITAMIN TAB PO SCH (08:02)
[2016-12-20 08:05] VITALS: BP 120/63; PULSE 72; TEMP 36.4; O2SAT 98
[2016-12-20] MEDS: OXYCODONE HCL 10 MG TABCR (OXYCONTIN) PO SCH ×2 (08:38→20:28)
[2016-12-20] MEDS: DOCUSATE SODIUM 100 MG CAP PO SCH ×2 (08:38→20:31)
[2016-12-20 10:12] VITALS: O2SAT 98
[2016-12-20 12:00] VITALS: BP 130/63; PULSE 73; O2SAT 98
[2016-12-20 12:06] VITALS: BP 130/63; PULSE 79; TEMP 36.7; O2SAT 97
[2016-12-20] MEDS: MAGNESIUM HYDROXIDE SUSP 30 ML UDC PO PRN ×2 (12:53→20:29)
[2016-12-20 15:24] VITALS: BP 125/62; PULSE 75; TEMP 36.7; O2SAT 96
--- NOTE | 2016-12-20 16:48 | Progress Note ---
Subjective Date of Service: Dec 20, 2016. Subjective Pt evaluation today including: conversation w/ patient, physical exam, chart review, lab review, review of studies, review of inpatient medication list Pain: denies any pain Voiding: no voiding problems, no incontinence Patient is seen and examined by me. Patient denies chest pain, shortness of breath, dizziness, palpitation or loss of consciousness.Patient denies abdominal pain and urinary symptoms. Patient is status post day 2 off total knee arthroplasty. Patient pain is well controlled with the current medications.. Review of Systems All Other Systems: Reviewed and Negative Medications Medications (Trade) Dose Ordered Sig/Ryan Route Start Time Stop Time Status Last Admin Dose Admin Lisinopril (Zestril Tab) 10 mg QAM PO 12/20/16 09:00 01/19/17 08:59 12/20/16 08:02 10 MG Objective Vital Signs Date Time Temp Pulse Resp B/P Pulse Ox O2 Delivery O2 Flow Rate FiO2 12/20/16 15:24 36.7 75 14 125/62 96 Room Air 12/20/16 12:06 36.7 79 15 130/63 97 Room Air 12/20/16 12:00 73 98 12/20/16 10:12 98 Room Air 12/20/16 08:05 36.4 72 14 120/63 98 Room Air 12/20/16 07:58 Room Air 12/19/16 23:35 36.8 77 15 144/81 95 Room Air 12/19/16 20:00 Room Air Physical Exam General Appearance: WD/WN, no apparent distress Respiratory/Chest: lungs clear, normal breath sounds, no respiratory distress Cardiovascular: regular rate, rhythm, no murmur Abdomen: normal bowel sounds, soft Neurologic/Psychiatric: alert, normal mood/affect, oriented x 3 Laboratory Results Medications (Trade) Dose Ordered Sig/Ryan Route Start Time Stop Time Status Last Admin Dose Admin Lisinopril (Zestril Tab) 10 mg QAM PO 12/20/16 09:00 01/19/17 08:59 12/20/16 08:02 10 MG Assessment and Plan 81 yo female stable POD #2 s/p right TKA, left knee pes bursa cortisone injection Plan: 1. Patient is medically clear to go to [place]. 2. DVT prophylaxis- ASA, TEDs, SCDs 3. PT/OT 4. D/C planning- pt interested in [place], will likely dc to [facility] th[facility] Continued [facility] stay due to: other ([place]) Discharge planning: jail facility
[2016-12-20 23:05] VITALS: BP 154/76; PULSE 86; TEMP 36.7; O2SAT 96
[2016-12-21] MEDS: ACETAMINOPHEN 500 MG TAB PO SCH ×2 (03:57→12:35)
[2016-12-21] MEDS: OXYCODONE HCL IR 5 MG TAB (IMMEDIATE RELEASE) PO PRN ×3 (04:11→09:43)
--- NOTE | 2016-12-21 06:25 | Orthopedic Progress Note ---
Orthopedic Progress Note Date of Service Dec 21, 2016. Subjective Post OP Day: 3 Reports: feeling well, pain controlled w PO medications, Denies: SOB, calf pain , chest pain, complaints, light headedness, nausea / vomiting Objective calves soft nontender, N/V intact, capillary refill less than 2 sec., dressing C /D/I, A&O x3, toes mobile Date Time Temp Pulse Resp B/P Pulse Ox O2 Delivery O2 Flow Rate FiO2 12/20/16 23:50 Room Air 12/20/16 23:05 36.7 86 18 154/76 96 Room Air 12/20/16 16:15 Room Air 12/20/16 15:24 36.7 75 14 125/62 96 Room Air 12/20/16 12:06 36.7 79 15 130/63 97 Room Air 12/20/16 12:00 73 98 12/20/16 10:12 98 Room Air 12/20/16 08:05 36.4 72 14 120/63 98 Room Air 12/20/16 07:58 Room Air Assessment & Plan Assessment: 81 yo female stable POD #3 s/p right TKA, left knee pes bursa cortisone injection Plan: 1. Med management 2. DVT prophylaxis- ASA, TEDs, SCDs 3. PT/OT 4. D/C planning- will [facility] after [facility] Discharge Planning Discharge Planning: shelter facility DVT Prophylaxis: TEDs, SCDs, ASA Therapy: Physical Therapy
[2016-12-21] MEDS ORDERED: OXYSR10 PO (06:33)
[2016-12-21] MEDS ORDERED: CLB200 PO (06:33)
[2016-12-21] MEDS ORDERED: ASPEC81 PO (06:33)
[2016-12-21] MEDS ORDERED: ONDA8TAB6 PO (06:33)
[2016-12-21] MEDS ORDERED: RXC5 PO (06:33)
[2016-12-21] MEDS ORDERED: ACET-1138 PO (06:33)
[2016-12-21 07:17] VITALS: BP 113/69; PULSE 83; TEMP 36.7; O2SAT 94
[2016-12-21] MEDS: ASPIRIN 81 MG ECTAB PO SCH (08:57)
[2016-12-21] MEDS: MULTIVITAMIN TAB PO SCH (08:57)
[2016-12-21] MEDS: CALCIUM 600MG + VIT D 400 IU TAB PO SCH (08:58)
[2016-12-21] MEDS: FERROUS GLUCONATE 324 MG TAB PO SCH ×2 (08:58→12:30)
[2016-12-21] MEDS: DOCUSATE SODIUM 100 MG CAP PO SCH (08:58)
[2016-12-21] MEDS: ATORVASTATIN 10 MG TAB PO SCH (08:58)
[2016-12-21] MEDS: GABAPENTIN 300 MG CAP PO SCH (08:58)
[2016-12-21] MEDS: LISINOPRIL 10 MG TAB PO SCH (08:58)
[2016-12-21] MEDS: PANTOprazole SOD 40 MG TAB PO SCH (08:58)
[2016-12-21] MEDS: OXYCODONE HCL 10 MG TABCR (OXYCONTIN) PO SCH (09:02)
[2016-12-21] MEDS: MAGNESIUM HYDROXIDE SUSP 30 ML UDC PO PRN (09:03)
[2016-12-21 12:42] VITALS: BP 113/69; PULSE 83; TEMP 36.7; O2SAT 94
--- NOTE | 2016-12-21 12:59 | Progress Note ---
Subjective Date of Service: Dec 21, 2016. Subjective Pt evaluation today including: conversation w/ patient, physical exam, chart review, lab review, review of studies, review of inpatient medication list Pain: denies any pain PO Intake: good by mouth intake Voiding: no voiding problems, no incontinence Patient is medically stable to discharge. Patient denies chest pain, shortness of breath, dizziness, palpitation and loss of consciousness. Patient denies abdominal pain and urinary symptoms. Patient denies fever, chills, rigors and sweats. Patient denies blurry vision and headache. Review of Systems All Other Systems: Reviewed and Negative Objective Vital Signs Date Time Temp Pulse Resp B/P Pulse Ox O2 Delivery O2 Flow Rate FiO2 12/21/16 12:42 36.7 83 17 94 Room Air 12/21/16 09:02 Room Air 12/21/16 07:17 36.7 83 17 113/69 94 Room Air 12/20/16 23:50 Room Air 12/20/16 23:05 36.7 86 18 154/76 96 Room Air 12/20/16 16:15 Room Air 12/20/16 15:24 36.7 75 14 125/62 96 Room Air Physical Exam General Appearance: WD/WN, no apparent distress Neck: supple Respiratory/Chest: lungs clear, normal breath sounds Cardiovascular: regular rate, rhythm, no edema, no murmur Abdomen: normal bowel sounds, soft Extremities: no pedal edema Neurologic/Psychiatric: alert, normal mood/affect, oriented x 3 Skin: no rash Assessment and Plan 81 yo female stable POD #3 s/p right TKA, left knee pes bursa cortisone injection Plan: 1. Patient is medically clear to go to [place]. 2. DVT prophylaxis- ASA, TEDs, SCDs 3. PT/OT 4. D/C planning- pt interested in [place], will likely dc [facility] Continued [facility] stay due to: other ([place]) Discharge planning: care home facility
--- NOTE | 2016-12-29 14:30 | OPERATIVE REPORT ---
DATE OF OPERATION: 12/21/2016 ADDENDUM salon assistant was Raimundo Rogers. Mr. Rogers was essential in all components of the case including positioning, prepping, draping, assistant floor covering printer, left knee injection, wound closure and dressing application. I attest to the content of the Intraoperative Record and any orders documented therein. Any exceptio ns are noted below.
--- NOTE | 2016-12-31 17:17 | DISCHARGE SUMMARY ---
CHIEF COMPLAINT: Bilateral knee pain. Please see complete history and physical examination. HOSPITAL COURSE: The patient underwent right total knee arthroplasty without complication. She tolerated the procedure well and was discharged to recovery room in stable condition. Her postop course was relatively uneventful. Her postoperative pain was reasonably well controlled with a combination of spinal anesthesia, intraoperative joint injection, IV, and oral pain medications. She was started on aspirin for DVT prophylaxis. She also utilized JIM stockings and SCDs for additional prophylaxis. Her H\T\H was stable and did not require transfusion. Her surgical drain was discontinued on postoperative day #2, surgical dressing will remain in place for approximately 7 days postoperative. She tolerated postop physical therapy reasonably well. She was ambulating and bending her knee appropriately. She was discharged to [facility] on postoperative day #3. She will continue her physical therapy there. She will continue her aspirin for DVT prophylaxis and follow up in our office in approximately 10-14 days for her initial postop evaluation.
[2017-02-06] MEDS ORDERED: LISI-461 PO (08:07)
[2017-02-06] MEDS ORDERED: MULT-506 PO (08:07)
[2017-02-06] MEDS ORDERED: MULTCAP7 PO (08:37)
[2017-02-06] MEDS ORDERED: GABA-113 PO (14:35)
[2017-02-06] MEDS ORDERED: TRIA1SPR4 INH (14:35)
[2017-02-06] MEDS ORDERED: ZNTT/150 PO (14:35)
== END 2016-12-21 13:33 | DRG 470 ==
LOC: ENRESERVTM → ENRESERVDT → C.ACU 10:21 → C.3E 11:30
PROC: 0SRC0J9 Replacement of Right Knee Joint with Synthetic Substitute, Cemented, Open Approach (ICD-10-PCS; principal; 2016-12-18 12:45)
PROC: 3E0U33Z Introduction of Anti-inflammatory into Joints, Percutaneous Approach (ICD-10-PCS; principal; 2016-12-18 12:45)
PROC: 3E0U3BZ Introduction of Anesthetic Agent into Joints, Percutaneous Approach (ICD-10-PCS; principal; 2016-12-18 12:45)
DX: M17.11 Unilateral primary osteoarthritis, right knee (principal); E78.5 Hyperlipidemia, unspecified; I10 Essential (primary) hypertension; K21.9 Gastro-esophageal reflux disease without esophagitis; M70.52 Other bursitis of knee, left knee; K44.9 Diaphragmatic hernia without obstruction or gangrene; F41.9 Anxiety disorder, unspecified; E66.9 Obesity, unspecified; R32 Unspecified urinary incontinence; F32.9 Major depressive disorder, single episode, unspecified; M54.5 Low back pain; Z96.652 Presence of left artificial knee joint; Z68.36 Body mass index [BMI] 36.0-36.9, adult; Z98.1 Arthrodesis status; Z79.1 Long term (current) use of non-steroidal anti-inflammatories (NSAID); Z79.899 Other long term (current) drug therapy; Z79.891 Long term (current) use of opiate analgesic; Z79.51 Long term (current) use of inhaled steroids

== ENCOUNTER → 2017-02-02 | Outpatient (CLI) | payer BC, OTHER ==
[~2017-02-02] MED LIST changes: +ACET-1138 PO; +ACET-1256 PO; -ACETAMINOPHEN 500 MG TAB PO SCH; +ASPEC81 PO; -BUPIVACAINE 0.5 % 5 MG/1 ML PF 10ML VIAL ONE; +CALCTAB7 PO; +CEPH500C2 PO; +CLB/200 PO; -CLINDAMYCIN 600 MG/54 ML D5W 54 ML IV SCH; -COEN1CAP17 PO; -CRAN1CAP15 PO; -CeleBREX 200 MG CAP PO SCH; -DEXAMETHASONE 4 MG TAB PO SCH; -FAMOTIDINE 20 MG TAB PO SCH; +GABA-113 PO; -GABAPENTIN 300 MG CAP PO SCH; -LACTATED RINGER'S 1000ML 1,000 ML IV SCH; -LACTATED RINGER'S 1000ML IV SCH; +LISI-461 PO; +LORA-741 PO; -METOCLOPRAMIDE HCL 10 MG TAB PO SCH; -MISSING PHYSICIAN SIGNATURE ON ORDER SCH; +MULT-506 PO; +MULTCAP7 PO; -OMEG10007 PO; +ONDA4TAB10 SL; +ONDA8TAB6 PO; -OXYCODONE HCL 10 MG TABCR (OXYCONTIN) PO SCH; +OXYSR10 PO; -ROPIVACAINE 5MG/ML 30 ML 150 MG, BUPIVACAINE/EPINEPHR 0.5% MPF 30 ML, KETOROLAC TROMETH... INFIL SCH; +RXC5 PO; -TRAM-10 PO; +TRIA1SPR4 INH; +ZNTT/150 PO
== END | disposition home or self-care (01) ==
LOC: C.LABMFLN 11:43
PROVIDERS: ATTEND Family Medicine
DX: R30.0 Dysuria (principal)

== ENCOUNTER 2017-02-06 16:39 | Emergency (ER) | payer OTHER, BC ==
[~2017-02-06] VITALS: Ht 157.5 cm; Wt 92.3 kg
[~2017-02-06 16:39] MED LIST changes: -ACET-1256 PO; -CALCTAB7 PO; -CEPH500C2 PO; -CLB/200 PO; -LORA-741 PO; -ONDA4TAB10 SL; -OXYC1TAB3 PO
[2017-02-06 16:57] VITALS: TEMP 38.2
[2017-02-06] MEDS ORDERED: SODIUM CHLORIDE 0.9% 1000ML 1,000 ML IV ONE (18:23)
[2017-02-06] MEDS ORDERED: ONDANSETRON INJ 2 MG/ML 2 ML VIAL IV STA (18:27)
[2017-02-06] MEDS ORDERED: ACETAMINOPHEN 325 MG TAB PO ONE (18:30)
[2017-02-06 18:37] VITALS: O2SAT 97; Ht 157.5 cm; Wt 92.3 kg
[2017-02-06] MEDS ORDERED: CLB/200 PO (18:45)
[2017-02-06] MEDS ORDERED: CALCTAB7 PO (18:45)
[2017-02-06] MEDS ORDERED: ACET-1256 PO (18:45)
[2017-02-06] MEDS ORDERED: LORA-741 PO (18:45)
[2017-02-06] MEDS ORDERED: ATOR10TA82 PO (18:45)
[2017-02-06] MEDS ORDERED: OXYC1TAB3 PO (18:45)
--- NOTE | 2017-02-06 18:47 | EMERGENCY ROOM VISIT NOTE ---
History Report prepared by Josias: Rita Brooks Under the Supervision of: Dr. Alex Garza D.O. First contact with patient: 18:15 Chief Complaint: ABDOMINAL PAIN Stated Complaint: SICK IN STOMACH,BOTTOM OF LEG HURTS Nursing Triage Summary: pt c/o feels sick in stomach and lower leg pain started 2 days after starting sulfa drug [facility] History of Present Illness The patient is an 81 year old female who presents to the Emergency Room with complaints of persistent nausea starting [employer]OC[employer] PROF[employer]CH[employer]. She recently had knee surgery and was on Keflex. She went to [facility] and she was put on a sulfa drug. She has had nausea since starting the new drug. She reports right lower leg pain which has worsened over the past couple of days. The pain is relieved with elevation. She has abdominal pain. She denies any urinary symptoms, cough, fever, chest pain, SOB, or back pain. 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 Review of Systems See HPI for pertinent positives & negatives. A total of 10 systems reviewed and were otherwise negative. Past Medical & Surgical Medical Problems: (1) Degenerative arthritis of right knee Family History Noncontributory secondary to age. Social History Smoking Status: Never Smoker Marital Status: Occupation Status: retired Current/Historical Medications Scheduled Atorvastatin (Lipitor), 10 MG PO DAILY Calcium Carbonate-Vitamin D W/ (Caltrate 600 Plus), 1 TAB PO BID Celecoxib (CeleBREX), 200 MG PO DAILY Cephalexin Monohydrate (Keflex), 500 MG PO QID Gabapentin (Neurontin), 300 MG PO TID Lisinopril (Zestril), 10 MG PO HS Multiple Vitamins W/ Minerals (Eye Vitamins), 1 TAB PO QAM Multivitamin (Multivitamin), 1 TAB PO QAM Ondasetron Odt (Zofran Odt), 4 MG SL Q6H Ranitidine (Zantac), 150 MG PO BID Triamcinolone Acetonide (Nasal (Nasacort Allergy 24Hr), 1 SPRAY INH HS Scheduled PRN Acetaminophen (Tylenol), 1,000 MG PO Q6 PRN for Pain Lorazepam (Ativan), 0.5 MG PO DAILY PRN for Anxiety Oxycodone Immediate Rel Tab (Roxicodone Ir), 5 MG PO Q4H PRN for Severe Pain Allergies Coded Allergies: Sulfamethoxazole w/Trimethoprim (Verified Allergy, Intermediate, chest pain, 12/18/16) Amoxicillin (Verified Allergy, Mild, funny felling in feet and was told she had a reaction, 12/08/16) reaction was in dental office Clarithromycin (Verified Allergy, Unknown, CHEST PAIN, 12/08/16) POLLEN (Verified Allergy, Unknown, hayfever, 12/08/16) Physical Exam Vital Signs Date Time Temp Pulse Resp B/P Pulse Ox O2 Delivery O2 Flow Rate FiO2 02/06/17 23:11 88 18 119/58 93 02/06/17 21:11 89 18 110/71 97 Room Air 02/06/17 19:11 89 18 130/63 97 Room Air 02/06/17 19:11 86 02/06/17 18:37 97 Room Air 02/06/17 18:18 102 18 143/68 97 Room Air 02/06/17 16:57 38.2 101 20 140/67 97 Room Air Physical Exam GENERAL: Patient is awake, alert, and mildly anxious appearing, but comfortable. EYES: The conjunctivae are clear. The pupils are round and reactive. EARS, NOSE, MOUTH AND THROAT: The nose is without any evidence of any deformity. Mucous membranes are moist tongue is midline NECK: The neck is nontender and supple. RESPIRATORY: Normal respiratory effort is noted there is no evidence of wheezing rhonchi or rales CARDIOVASCULAR: Regular rate and rhythm noted there no murmurs rubs or gallops normal S1 normal S2 GASTROINTESTINAL: The abdomen is mildly distended, but soft. No specific guarding or rigidity noted. MUSCULOSKELETAL/EXTREMITIES: There is no evidence of gross deformity full range of motion is noted in the hips and shoulders SKIN: Pedal edema bilaterally with venous stasis changes noted, significant erythema in the right lower extremity, pulses were symmetric, skin was warm and dry. NEUROLOGIC: Patient is awake alert and oriented x3 strength is symmetric patellar reflexes are 2+ bilaterally Medical Decision & Procedures ER Provider Diagnostic Interpretation: X-ray results as stated below per interpretation by me and the radiologist. Radiology results as stated below per my review and radiologist interpretation: CHEST ONE VIEW PORTABLE CLINICAL HISTORY: Sepsis COMPARISON STUDY: Chest radiograph June 30, 2016. FINDINGS: Lung volumes are normal. There is no pneumothorax or pleural effusion. A 1.2 cm indeterminate right mid to lower lung zone nodule is again noted. This is either stable or minimally increased in size since prior exam. Mild cardiomegaly is noted without evidence of pulmonary edema. A moderate sized hiatal hernia is noted. IMPRESSION: 1. No acute cardiopulmonary findings. 2. Moderate-sized hiatal hernia. 3. 1.2 cm right lung nodule which is either stable or minimally increased in size since prior exam. This remains indeterminate. Electronically signed by: Luis Carlos Shea M.D. 02/06/2017 7:00 PM Dictated Date/Time: 02/06/2017 6:57 PM BILATERAL LOWER EXTREMITY VENOUS DOPPLER CLINICAL HISTORY: Lower extremity redness and swelling. COMPARISON STUDY: No previous studies for comparison. TECHNIQUE: Sonography of the deep venous system of the bilateral lower extremities was performed. Compression and augmentation were evaluated. FINDINGS: The bilateral common femoral, superficial femoral and popliteal veins were compressible. Augmentation was normal. Flow was shown within the deep calf vessels. IMPRESSION: No evidence of deep venous thrombus within the bilateral lower extremities. Electronically signed by: Luis Carlos Shea M.D. 02/06/2017 9:03 PM Dictated Date/Time: 02/06/2017 9:03 PM Laboratory Results 02/06/17 19:30 Red Blood Count 3.94, Mean Corpuscular Volume 84.5, Mean Corpuscular Hemoglobin 27.4, Mean Corpuscular Hemoglobin Concent 32.4, Mean Platelet Volume 8.8, Neutrophils (%) (Auto) 83.6, Lymphocytes (%) (Auto) 6.6, Monocytes (%) (Auto) 5.4, Eosinophils (%) (Auto) 4.1, Basophils (%) (Auto) 0.1, Neutrophils # (Auto) 7.83, Lymphocytes # (Auto) 0.62, Monocytes # (Auto) 0.51, Eosinophils # (Auto) 0.38, Basophils # (Auto) 0.01 02/06/17 19:30 Test 02/06/17 19:30 02/06/17 19:35 02/06/17 19:50 02/06/17 20:33 White Blood Count 9.37 K/uL (4.8-10.8) Red Blood Count 3.94 M/uL (4.2-5.4) Hemoglobin 10.8 g/dL (12.0-16.0) Hematocrit 33.3 % (37-47) Mean Corpuscular Volume 84.5 fL (80-100) Mean Corpuscular Hemoglobin 27.4 pg (25-34) Mean Corpuscular Hemoglobin Concent 32.4 g/dl (32-36) Platelet Count 212 K/uL (130-400) Mean Platelet Volume 8.8 fL (7.4-10.4) Neutrophils (%) (Auto) 83.6 % Lymphocytes (%) (Auto) 6.6 % Monocytes (%) (Auto) 5.4 % Eosinophils (%) (Auto) 4.1 % Basophils (%) (Auto) 0.1 % Neutrophils # (Auto) 7.83 K/uL (1.4-6.5) Lymphocytes # (Auto) 0.62 K/uL (1.2-3.4) Monocytes # (Auto) 0.51 K/uL (0.11-0.59) Eosinophils # (Auto) 0.38 K/uL (0-0.5) Basophils # (Auto) 0.01 K/uL (0-0.2) RDW Standard Deviation 44.1 fL (36.4-46.3) RDW Coefficient of Variation 14.1 % (11.5-14.5) Immature Granulocyte % (Auto) 0.2 % Immature Granulocyte # (Auto) 0.02 K/uL (0.00-0.02) Erythrocyte Sedimentation Rate 52 mm/hr (0-21) Prothrombin Time 11.9 SECONDS (9.0-12.0) Prothromb Time International Ratio 1.1 (0.9-1.1) Activated Partial Thromboplast Time 30.2 SECONDS (21.0-31.0) Partial Thromboplastin Ratio 1.2 Anion Gap 7.0 mmol/L (3-11) Est Creatinine Clear Calc Drug Dose 77.8 ml/min Estimated GFR () 99.2 Estimated GFR (Non- 85.6 BUN/Creatinine Ratio 18.2 (10-20) Calcium Level 8.1 mg/dl (8.5-10.1) Phosphorus Level 2.8 mg/dl (2.5-4.9) Magnesium Level 2.0 mg/dl (1.8-2.4) Total Bilirubin 0.5 mg/dl (0.2-1) Aspartate Amino Transf (AST/SGOT) 12 U/L (15-37) Alanine Aminotransferase (ALT/SGPT) 17 U/L (12-78) Alkaline Phosphatase 89 U/L (45-117) Total Creatine Kinase 74 U/L (26-192) Creatine Kinase MB 0.9 ng/ml (0.5-3.6) Creatine Kinase MB Ratio 1.2 (0-3.0) Troponin I < 0.015 ng/ml (0-0.045) C-Reactive Protein 6.10 mg/dl (0-0.29) Pro-B-Type Natriuretic Peptide 148 pg/ml (0-1800) Total Protein 6.6 gm/dl (6.4-8.2) Albumin 2.9 gm/dl (3.4-5.0) Globulin 3.7 gm/dl (2.5-4.0) Albumin/Globulin Ratio 0.8 (0.9-2) Lipase 285 U/L (73-393) Venous Blood pH 7.48 (7.36-7.41) Venous Blood Partial Pressure CO2 34 mmHg (38.0-50.0) Venous Blood Partial Pressure O2 92 mmHg Venous Blood HCO3 24 meq/L Venous Blood Oxygen Saturation 97.2 % Venous Blood Base Excess 1.2 mmol/L Bedside Lactic Acid Venous 0.72 mmol/L (0.90-1.70) Urine Color YELLOW Urine Appearance CLEAR (CLEAR) Urine pH 6.5 (4.5-7.5) Urine Specific [place] 1.004 (1.000-1.030) Urine Protein NEG (NEG) Urine Glucose (UA) NEG (NEG) Urine Ketones NEG (NEG) Urine Occult Blood NEG (NEG) Urine Nitrite NEG (NEG) Urine Bilirubin NEG (NEG) Urine Urobilinogen NEG (NEG) Urine Leukocyte Esterase NEG (NEG) Urine WBC (Auto) 0 /hpf (0-5) Urine RBC (Auto) 0-4 /hpf (0-4) Urine Hyaline Casts (Auto) 1-5 /lpf (0-5) Urine Epithelial Cells (Auto) 0-5 /lpf (0-5) Urine Bacteria (Auto) NEG (NEG) Laboratory results per my review. Medications Administered Medications (Trade) Dose Ordered Sig/Ryan Route Start Time Stop Time Status Last Admin Dose Admin Sodium Chloride (Nss 1000ml) 1,000 ml @ 999 mls/hr Q1H1M ONCE IV 02/06/17 18:23 02/06/17 19:23 DC 02/06/17 19:15 999 MLS/HR Acetaminophen (Tylenol Tab) 650 mg ONE ONCE PO 02/06/17 18:30 02/06/17 18:31 DC 02/06/17 18:41 650 MG Ondansetron HCl (Zofran Inj) 4 mg NOW STAT IV 02/06/17 18:27 02/06/17 18:28 DC 02/06/17 19:14 4 MG Ceftriaxone Sodium (Rocephin Inj) 1 gm NOW STAT IV 02/06/17 21:51 02/06/17 21:52 DC 02/06/17 22:19 1 GM Ondansetron HCl (ZOFRAN ODT 4MG Home Pack) 1 homepack UD ONCE PO 02/06/17 22:30 02/06/17 22:31 DC 02/06/17 23:00 1 HOMEPACK ECG Indication: nausea Rate (beats per minute): 94 Rhythm: normal sinus Findings: no ectopy, other (no acute ST segment abnormality) Comparison ECG Date: 30-Jun-2016 Change: no significant change ED Course 1817: The patient was evaluated in room A9B. A complete history and physical examination were performed. 1822: NSS 1000 ml @ 999 mls/hr IV. 1826: Zofran Inj 4 mg IV. 1829: Acetaminophen 650 mg PO. 2150: Rocephin Inj 1 gm IV. 2158: Upon reevaluation, the patient is resting comfortably. I discussed the results and treatment plan with her. She verbalized agreement of the treatment plan. She was discharged home. 2229: Ondansetron HCl 1 homepack PO. Medical Decision Prior records/ancillary studies reviewed. Triage Nursing notes reviewed. Additional history obtained from family. Medication Reconciliation: I attest that I have personally reviewed the patient' s current medications list. The patient's history was concerning for fever. Differential diagnosis: Etiologies such as viral syndrome, otitis, pharyngitis, pneumonia, influenza, meningitis, urinary tract infection, sepsis, bacteremia, as well as others were entertained. Blood pressure screening: Patient was found to have normal blood pressure on screening and does not require follow-up. The patient is an 81-year-old female who presented to the emergency department with multiple complaints. The patient was being treated for cellulitis of her lower extremities but her medications appear to be upsetting her stomach. She has epigastric discomfort and nausea but does not have a physical exam consistent with an acute surgical abdomen. She appears to have chronic venous stasis in both lower extremities as well as signs of possible stasis dermatitis in the right leg greater than the left. She had surgery on a right knee recently. There is no signs of venous thromboembolic disease on ultrasound. The patient states that she was taking Keflex and using compression stockings and states that this was helping her symptoms. She was started back on antibiotics after she was given a dose of IV antibiotics in emergency department. I discussed the patient's laboratory and radiographic studies with her. She was encouraged to rest and avoid any strenuous activity. She was also encouraged to call her primary care physician to schedule a follow-up appointment. She was also encouraged to return to emergency department immediately if symptoms change worsen or the need arises. Impression Primary Impression: Epigastric abdominal pain Additional Impression: Cellulitis of right lower extremity Scribe Attestation The scribe's documentation has been prepared under my direction and personally reviewed by me in its entirety. I confirm that the note above accurately reflects all work, treatment, procedures, and medical decision making performed by me. Departure Information Dispostion Home / Self-Care Prescriptions Ondasetron Odt (ZOFRAN ODT) 4 Mg Tab 4 MG SL Q6H for Nausea, #15 TAB Prov: Alex Garza, DO 02/06/17 Cephalexin Monohydrate (KEFLEX) 500 Mg Cap 500 MG PO QID, #28 CAP Prov: Alex Garza, DO 02/06/17 Referrals Mercedes Barton M.D. (PCP) Forms HOME CARE DOCUMENTATION FORM, IMPORTANT VISIT INFORMATION Patient Instructions Cellulitis [place], My [facility] Additional Instructions Continue all medications as prescribed. Rest and avoid any strenuous activity. Keep her legs elevated as much as possible. Continue using compression stockings as directed. Try using Maalox or Mylanta as directed for symptomatic relief. Problem Qualifiers
--- NOTE | 2017-02-06 19:02 | DIAGNOSTIC IMAGING REPORT ---
CHEST ONE VIEW PORTABLE CLINICAL HISTORY: Sepsis COMPARISON STUDY: Chest radiograph June 30, 2016. FINDINGS: Lung volumes are normal. There is no pneumothorax or pleural effusion. A 1.2 cm indeterminate right mid to lower lung zone nodule is again noted. This is either stable or minimally increased in size since prior exam. Mild cardiomegaly is noted without evidence of pulmonary edema. A moderate sized hiatal hernia is noted. IMPRESSION: 1. No acute cardiopulmonary findings. 2. Moderate-sized hiatal hernia. 3. 1.2 cm right lung nodule which is either stable or minimally increased in size since prior exam. This remains indeterminate. Electronically signed by: Luis Carlos Shea M.D. 02/06/2017 7:00 PM Dictated Date/Time: 02/06/2017 6:57 PM
[2017-02-06 19:53] LABS: BASO % 0.1 %; BASO ABS # 0.01 K/uL (0-0.2); COMPLETE YES; EOS % 4.1 %; HEMATOCRIT 33.3 % (37-47); IG% 0.2 %; LYMPH % 6.6 %; LYMPH ABS # 0.62 K/uL (1.2-3.4); MEAN CELL VOLUME 84.5 fL (80-100); MEAN CORPUSCULAR HEMOGLOBIN 27.4 pg (25-34); MEAN CORPUSCULAR HGB CONC 32.4 g/dl (32-36); MEAN PLATELET VOLUME 8.8 fL (7.4-10.4); MONO % 5.4 %; NEUT % 83.6 %; PLATELET COUNT 212 K/uL (130-400); RED BLOOD COUNT 3.94 M/uL (4.2-5.4); WHITE BLOOD COUNT 9.37 K/uL (4.8-10.8)
[2017-02-06 19:55] LABS: VEN BLD GAS O2 SATURATION 97.2 %; VEN BLOOD GAS BASE EXCESS 1.2 mmol/L; VENOUS BLOOD GAS PCO2 34 mmHg (38.0-50.0); VENOUS BLOOD GAS PO2 92 mmHg
[2017-02-06 20:06] LABS: INR 1.1 (0.9-1.1); PARTIAL THROMBOPLASTIN RATIO 1.2; PROTHROMBIN TIME (PATIENT) 11.9 SECONDS (9.0-12.0)
[2017-02-06 20:12] LABS: ALT/SGPT 17 U/L (12-78); AST/SGOT 12 U/L (15-37); BLOOD UREA NITROGEN 11 mg/dl (7-18); BUN/CREATININE RATIO 18.2 (10-20); CALCIUM 8.1 mg/dl (8.5-10.1); CARBON DIOXIDE 26 mmol/L (21-32); CHLORIDE 106 mmol/L (98-107); CREATININE 0.61 mg/dl (0.60-1.20); GLUCOSE 122 mg/dl (70-99); POTASSIUM 3.8 mmol/L (3.5-5.1); SODIUM 139 mmol/L (136-145)
[2017-02-06 20:15] LABS: ALB/GLOB RATIO 0.8 (0.9-2); ALKALINE PHOSPHATASE 89 U/L (45-117); CKMB/CK RATIO 1.2 (0-3.0); PHOSPHORUS 2.8 mg/dl (2.5-4.9)
[2017-02-06 20:45] LABS: MANUAL MICROSCOPIC REQUIRED? NO; REVIEW REQ? NO; URINE APPEARANCE CLEAR (CLEAR); URINE BILIRUBIN NEG (NEG); URINE COLOR YELLOW; URINE EPITHELIAL CELL AUTO 0-5 /lpf (0-5); URINE NITRITE NEG (NEG); URINE PH 6.5 (4.5-7.5); URINE SPECIFIC GRAVITY 1.004 (1.000-1.030); UROBILINOGEN NEG (NEG); ZZUR CULT IF INDIC CLEAN CATCH NO
--- NOTE | 2017-02-06 21:04 | DIAGNOSTIC IMAGING REPORT ---
BILATERAL LOWER EXTREMITY VENOUS DOPPLER CLINICAL HISTORY: Lower extremity redness and swelling. COMPARISON STUDY: No previous studies for comparison. TECHNIQUE: Sonography of the deep venous system of the bilateral lower extremities was performed. Compression and augmentation were evaluated. FINDINGS: The bilateral common femoral, superficial femoral and popliteal veins were compressible. Augmentation was normal. Flow was shown within the deep calf vessels. IMPRESSION: No evidence of deep venous thrombus within the bilateral lower extremities. Electronically signed by: Luis Carlos Shea M.D. 02/06/2017 9:03 PM Dictated Date/Time: 02/06/2017 9:03 PM
[2017-02-06] MEDS ORDERED: CEFTRIAXONE SOD INJ 1 GM ADDVIAL IV STA (21:51)
[2017-02-06] MEDS ORDERED: CEPH500C2 PO (21:54)
[2017-02-06] MEDS ORDERED: ONDA4TAB10 SL (22:22)
[2017-02-06] MEDS ORDERED: ONDANSETRON HOME PACK 4MG OD TAB PO ONE (22:30)
[2017-02-06 23:11] VITALS: BP 119/58; PULSE 88; O2SAT 93
== END 2017-02-06 23:11 | disposition home or self-care (01) ==
LOC: C.EDB 16:40 → C.EDA 23:11
DX: R10.13 Epigastric pain (principal); L03.115 Cellulitis of right lower limb; R11.0 Nausea; Z79.899 Other long term (current) drug therapy; M79.604 Pain in right leg; M79.605 Pain in left leg; R60.0 Localized edema

== ENCOUNTER → 2017-06-29 | Outpatient (CLI) | payer OTHER, BC ==
[~2017-06-29] MED LIST changes: -ACET-1138 PO; +ACET-1256 PO; -ASPEC81 PO; -ATOR10TA82 PO; +ATOR10TA88 PO; -ATV1 PO; +CALCTAB7 PO; +CEPH500C2 PO; +CLB/200 PO; -CLB200 PO; -CLTP PO; +LORA-741 PO; +ONDA4TAB10 SL; -ONDA8TAB6 PO; +OXYC1TAB3 PO; -OXYSR10 PO; -RXC5 PO
[2017-06-29 14:02] LABS: URINE APPEARANCE CLOUDY (CLEAR); URINE BILIRUBIN NEG (NEG); URINE COLOR DK YELLOW; URINE NITRITE POS (NEG); URINE PH 5.5 (4.5-7.5); URINE SPECIFIC GRAVITY 1.011 (1.000-1.030); UROBILINOGEN NEG (NEG)
[2017-06-29 14:03] LABS: MANUAL MICROSCOPIC REQUIRED? NO; REVIEW REQ? NO
== END | disposition home or self-care (01) ==
LOC: C.LABMFLN 11:29
PROVIDERS: ATTEND Family Medicine
DX: M48.061 Spinal stenosis, lumbar region without neurogenic claudication (principal); R30.0 Dysuria

== ENCOUNTER → 2017-10-12 | Outpatient (CLI) | payer OTHER, BC ==
[~2017-10-12] MED LIST changes: +ATOR10TA82 PO; -ATOR10TA88 PO; -CEPH500C2 PO; -ONDA4TAB10 SL
[2017-10-12 12:50] LABS: BASO % 0.3 %; BASO ABS # 0.02 K/uL (0-0.2); EOS % 6.6 %; EOS ABS # 0.42 K/uL (0-0.5); HEMOGLOBIN 13.1 g/dL (12.0-16.0); IG# 0.01 K/uL (0.00-0.02); LYMPH % 26.4 %; LYMPH ABS # 1.67 K/uL (1.2-3.4); MEAN CELL VOLUME 87.9 fL (80-100); MEAN CORPUSCULAR HEMOGLOBIN 28.8 pg (25-34); MEAN CORPUSCULAR HGB CONC 32.8 g/dl (32-36); MONO % 8.4 %; MONO ABS # 0.53 K/uL (0.11-0.59); NEUT % 58.1 %; NEUT ABS # 3.68 K/uL (1.4-6.5); PLATELET COUNT 197 K/uL (130-400); RED CELL DISTRIBUTION WIDTH CV 15.4 % (11.5-14.5); RED CELL DISTRIBUTION WIDTH SD 49.2 fL (36.4-46.3); WHITE BLOOD COUNT 6.33 K/uL (4.8-10.8)
[2017-10-12 13:26] LABS: ALBUMIN 3.4 gm/dl (3.4-5.0); ALT/SGPT 22 U/L (12-78); AST/SGOT 16 U/L (15-37); BLOOD UREA NITROGEN 13 mg/dl (7-18); CALCIUM 9.1 mg/dl (8.5-10.1); CARBON DIOXIDE 26 mmol/L (21-32); CHOLESTEROL 140 mg/dl (0-200); CREATININE 0.72 mg/dl (0.60-1.20); GLUCOSE 90 mg/dl (70-99); POTASSIUM 3.8 mmol/L (3.5-5.1); SODIUM 138 mmol/L (136-145); TOTAL PROTEIN 7.6 gm/dl (6.4-8.2)
[2017-10-12 13:40] LABS: ALKALINE PHOSPHATASE 98 U/L (45-117); LDL CHOLESTEROL CALCULATED 51 mg/dl
== END | disposition home or self-care (01) ==
LOC: C.LABMFLN 08:59
PROVIDERS: ATTEND Family Medicine
DX: I10 Essential (primary) hypertension (principal); E78.5 Hyperlipidemia, unspecified

== ENCOUNTER → 2017-12-07 | Outpatient (CLI) | payer OTHER, BC ==
[~2017-12-07] MED LIST changes: +RANI150T85 PO; -ZNTT/150 PO
== END | disposition home or self-care (01) ==
LOC: C.LABMFLN 12:18
PROVIDERS: ATTEND Family Medicine
DX: Z87.898 Personal history of other specified conditions (principal)

== ENCOUNTER → 2018-01-18 | Outpatient (CLI) | payer OTHER, BC | END | disposition home or self-care (01) | LOC: C.LABMFLN 14:10 | PROVIDERS: ATTEND Family Medicine | DX: R35.0 Frequency of micturition (principal) ==

== ENCOUNTER → 2018-02-03 | Outpatient (CLI) | payer OTHER, BC ==
[2018-02-03 18:01] LABS: PTT PATIENT 26.8 SECONDS (21.0-31.0)
[2018-02-03 18:02] LABS: BASO % 0.4 %; BASO ABS # 0.03 K/uL (0-0.2); EOS ABS # 0.16 K/uL (0-0.5); HEMATOCRIT 40.3 % (37-47); HEMOGLOBIN 13.2 g/dL (12.0-16.0); IG# 0.02 K/uL (0.00-0.02); LYMPH ABS # 1.66 K/uL (1.2-3.4); MEAN CELL VOLUME 89.8 fL (80-100); MEAN CORPUSCULAR HEMOGLOBIN 29.4 pg (25-34); MEAN CORPUSCULAR HGB CONC 32.8 g/dl (32-36); MEAN PLATELET VOLUME 10.2 fL (7.4-10.4); MONO % 6.1 %; MONO ABS # 0.48 K/uL (0.11-0.59); NEUT % 70.2 %; NEUT ABS # 5.54 K/uL (1.4-6.5); PLATELET COUNT 225 K/uL (130-400); RED CELL DISTRIBUTION WIDTH SD 49.2 fL (36.4-46.3); WHITE BLOOD COUNT 7.89 K/uL (4.8-10.8)
== END | disposition home or self-care (01) ==
LOC: C.LABMFLN 11:39
DX: Z01.818 Encounter for other preprocedural examination (principal); R49.0 Dysphonia

== ENCOUNTER → 2018-04-15 | Outpatient (CLI) | payer OTHER, BC ==
[~2018-04-15] MED LIST changes: -ACET-1256 PO; +ALLERGY SHOTS SQ; +ATV1 PO; +CLR10 PO; +COEN100C11 PO; +CRAN500C2 PO; +FENT25DI10 TOP; +FLVHFA110 INH; -LORA-741 PO; +MISCCAP69 PO; -MULTCAP7 PO; +OMEG10007 PO; +OXYC-737 PO; -OXYC1TAB3 PO; +PRLSR20 PO; -RANI150T85 PO; +SERT50TA PO; +TIZA2CAP PO; -TRIA1SPR4 INH; +nasonex
[2018-04-15 17:47] LABS: BASO % 0.2 %; BASO ABS # 0.02 K/uL (0-0.2); EOS % 1.1 %; EOS ABS # 0.09 K/uL (0-0.5); HEMOGLOBIN 13.9 g/dL (12.0-16.0); IG# 0.01 K/uL (0.00-0.02); LYMPH % 8.8 %; LYMPH ABS # 0.73 K/uL (1.2-3.4); MEAN CELL VOLUME 88.4 fL (80-100); MEAN CORPUSCULAR HEMOGLOBIN 29.3 pg (25-34); MEAN CORPUSCULAR HGB CONC 33.1 g/dl (32-36); MEAN PLATELET VOLUME 10.3 fL (7.4-10.4); MONO % 6.6 %; MONO ABS # 0.55 K/uL (0.11-0.59); NEUT % 83.2 %; NEUT ABS # 6.94 K/uL (1.4-6.5); PLATELET COUNT 202 K/uL (130-400); RED CELL DISTRIBUTION WIDTH CV 14.4 % (11.5-14.5); RED CELL DISTRIBUTION WIDTH SD 46.6 fL (36.4-46.3); WHITE BLOOD COUNT 8.34 K/uL (4.8-10.8)
[2018-04-15 18:00] LABS: ALBUMIN 3.7 gm/dl (3.4-5.0); BLOOD UREA NITROGEN 13 mg/dl (7-18); CALCIUM 9.2 mg/dl (8.5-10.1); CARBON DIOXIDE 27 mmol/L (21-32); CREATININE 0.82 mg/dl (0.60-1.20); GLUCOSE 157 mg/dl (70-99); PHOSPHORUS 3.5 mg/dl (2.5-4.9); POTASSIUM 3.9 mmol/L (3.5-5.1); SODIUM 136 mmol/L (136-145)
== END | disposition home or self-care (01) ==
LOC: C.LABMFLN 14:25
PROVIDERS: ATTEND Family Medicine
DX: R63.4 Abnormal weight loss (principal)

== ENCOUNTER 2021-12-01 15:59 | Inpatient (IN) ==
[2021-12-01] MEDS ORDERED: ACETAMINOPHEN 500 MG TAB PO STA (16:35)
[2021-12-01] MEDS ORDERED: CEFEPIME 2,000 MG/20 ML VIAL IV STA (16:35)
--- NOTE | 2021-12-01 16:50 | Emergency Department Note ---
Impression & Plan Bilateral leg pain, Cellulitis, DVT (deep venous thrombosis), Pedal edema ED Provider Note NAME: KHADIJAH MCCANN AGE: 86 SEX: F : 1935 ARRIVES VIA: Walk-In INFORMANT: [Patient] ED PROVIDER(S): [Timoteo Crews MD] CHIEF COMPLAINT: Leg pain HISTORY OF PRESENT ILLNESS: The patient is an 86-year-old female presents with with bilateral leg pain and swelling for the last few days. The pain is a 7/10. She has noticed increased redness to the legs. No fever, no chills, no shortness of breath, cough or congestion. No abdominal pain or chest pain. The patient states that she has not been vomiting, she has not had diarrhea. She has not suffered injury to her legs. She states that she has had issues with her legs before, typically, antibiotics seem to help. REVIEW OF SYSTEMS: See HPI for pertinent positives and negatives. A total of ten systems were reviewed and were otherwise negative. PMHx/PSHx: See Below SOCIAL HISTORY: See Below. PHYSICAL EXAM: GENERAL: Patient is in no acute distress. HEENT: No acute trauma, normocephalic atraumatic, mucous membranes moist, no nasal congestion, no scleral icterus. NECK: No stridor, no adenopathy, no meningismus, trachea is midline. LUNGS: Clear to auscultation bilaterally, no wheeze, no rhonchi, breath sounds equal. HEART: Without murmurs gallops or rubs, regular rate and rhythm. ABDOMEN: Soft, nontender, bowel sounds positive, no hernias, no peritonitis. EXTREMITIES: No cyanosis. Moderate bilateral pedal edema. There is warmth and erythema from the feet to the area just below the knees. No drainage. Chronic skin change to both lower extremities is noted. NEUROLOGIC: Oriented x 3, no acute motor or sensory deficits, no focal weakness. SKIN: No rash, no jaundice, no diaphoresis. DIFFERENTIAL DIAGNOSIS: Cellulitis, bacteremia or sepsis, DVT, edema, anemia, electrolyte imbalance, strain, contusion, hematoma, neurovascular compromise, fluid overload, among others. EMERGENCY DEPARTMENT COURSE/PROCEDURES: MEDICAL DECISION MAKING: There is no leukocytosis or concerning anemia. There is a normal platelet count. No significant electrolyte abnormality or kidney failure. Lactic acid level is not elevated making severe sepsis less likely. No worrisome liver enzyme elevation. The patient appeared to be in a euthyroid state. Covid testing returned negative. Chest x-ray showed some chronic change, no CHF or pneumonia. Bilateral lower extremity ultrasound does show a DVT within the left lower extremity. The right lower extremity was without DVT. On exam, the patient had bilateral lower extremity cellulitis. Patient received IV cefepime as antibiotic coverage. She was given oral Tylenol for pain. Patient has edema of both lower extremities. She has bilateral lower extremity pain, she has a cellulitis of both lower legs and now a DVT in the left lower extremity. Given all her findings, given her issues and age, I do think a hospital stay is warranted. I spoke with the patient and casework specialist. The on-call hospitalist was consulted. Past Med/Surg History Medical History 2019 novel coronavirus not detected Benign essential hypertension Cough Depression Gait abnormality Generalized anxiety disorder Generalized osteoarthritis of multiple sites GERD (gastroesophageal reflux disease) HTN (hypertension) Hyperlipidemia Hypothyroidism Idiopathic peripheral neuropathy Kyphosis Laryngeal squamous cell carcinoma Lumbar canal stenosis Multiple pulmonary nodules Osteoarthritis of both knees Pain syndrome, chronic Recurrent UTI Spinal stenosis Surgical History H/O ligation of vein History of appendectomy History of breast biopsy History of cataract surgery History of esophagogastroduodenoscopy (EGD) History of left knee replacement History of lumbar surgery History of right knee joint replacement History of surgery (~2017) History of tooth extraction Hx of cholecystectomy Hx of colonoscopy Family History Mother Coronary heart disease Brother Coronary heart disease Sister Coronary heart disease Myocardial infarction Father Myocardial infarction Other No family history of adverse response to anesthesia Denies family history of Ovarian cancer Prostate cancer Breast cancer Colorectal cancer Social History Smoking Status: Never smoker Second Hand Exposure: Yes ( A CHILD); Hx Alcohol Use: No Hx Substance Use: No Preferred Language: Armenian Communication Ability: Effective Visual Impairment: Partially Limited Hearing Ability: Normal Schedule Maker Required: No Beliefs That Will Affect Care: None marital status: Current Living Situation: Alone Current Living Situation Comment: DAUGHTER LIVES CLOSE TO PT, ASSISTS NEEDED current occupational status: retired Feels Safe at Home: Yes Childhood Exposure to Second-Hand Smoke: Yes caffeine: Yes (coffee/tea) during the past year weight has: remained stable Dental Care, Regularly: Yes Physical Activity Frequency: 1-2 Times per Week Physical Activity Frequency Comment: uses walker Seatbelt Use: always Sunscreen Use: Yes Do you think of yourself as: straight/heterosexual Assistive Devices: Cane, Glasses and Walker Allergies Allergies Allergy/AdvReac Type Severity Reaction Status Date / Time Sulfa (Sulfonamide Allergy Severe RASH Verified 12/01/21 16:15 Antibiotics) sulfamethoxazole Allergy Intermediate chest pain Verified 12/01/21 16:15 trimethoprim Allergy Intermediate chest pain Verified 12/01/21 16:15 amoxicillin Allergy Mild funny Verified 12/01/21 16:15 feeling in feet and was told she had a reaction clarithromycin Allergy Unknown CHEST PAIN Verified 12/01/21 16:15 pollen extracts Allergy Unknown hayfever Verified 12/01/21 16:15 Home Meds Home Medications Medication Instructions Recorded Confirmed lutein 25 mg-zeaxanthin 5 mg 1 cap PO QPM 09/05/19 12/01/21 capsule cranberry extract 500 mg capsule 500 mg PO QPM cap 12/28/19 12/01/21 cetirizine 10 mg tablet 10 mg PO QPM 02/06/21 12/01/21 coenzyme Q10 100 mg capsule 100 mg PO QPM 02/06/21 12/01/21 (CoQ-10) levothyroxine 75 mcg tablet 75 mcg PO QAM 02/06/21 12/01/21 (Synthroid) Previous Rx's Medication Instructions Recorded calcium carbonate 600 mg-vitamin 1 tab PO BID #180 tab 02/17/19 D3 10 mcg (400 unit) tablet (Calcium 600 + D(3)) lisinopril 10 mg tablet 10 mg PO QPM #90 tab 03/13/21 gabapentin 400 mg capsule 400 mg PO QID #120 cap 06/25/21 mirabegron 25 mg tablet,extended 25 mg PO QAM #30 tab 07/25/21 release 24 hr (Myrbetriq) fluticasone propionate 50 2 spray INTRANASAL DAILY #16 g 08/30/21 mcg/actuation nasal spray,suspension (Flonase Allergy Relief) atorvastatin 10 mg tablet 10 mg PO QPM #90 tab 09/09/21 duloxetine 30 mg capsule,delayed 30 mg PO QPM #30 cap 11/01/21 release omeprazole 20 mg capsule,delayed 20 mg PO DAILY #90 cap 11/12/21 release ondansetron HCl 4 mg tablet 4 mg PO Q6H PRN #30 tab 11/19/21 oxycodone 5 mg tablet 5 mg PO Q4H PRN #150 tab 11/22/21 Results & Data (ED) Vital Signs Vital Signs - 24 hr 12/01/21 16:06 12/01/21 16:58 12/01/21 17:32 Temperature 36.7 C Temperature Source Temporal Artery Scan Oral Pulse Rate 106 H Pulse Rate [Right Finger] 101 H Pulse Rhythm Regular Pulse Rhythm [Right Finger] Regular Pulse Strength Normal Respiratory Rate 20 18 Respiratory Effort / Characteristics Non-Labored Spontaneous Respiratory Depth Normal Normal Respiratory Pattern Regular Blood Pressure 144/85 H Blood Pressure [Right Arm] 165/84 H Blood Pressure Mean 104 Blood Pressure Mean [Right Arm] 111 Blood Pressure Position Sitting Blood Pressure Position [Right Arm] Sitting Pulse Oximetry 96 99 Oxygen Delivery Method Room Air Room Air Sepsis Recent Fever Within 48 Hours No Sepsis New/Unexplained Change in Mental Status N/A Sepsis Action Taken by Nursing No Action Required Home Medications Current Medication List: was personally reviewed by me Laboratory Data Attestation: I reviewed the patient's lab results. Result diagrams: 12/01/21 16:45 12/01/21 16:45 Lab Results 12/01/21 12/01/21 12/01/21 Range/Units 16:45 16:45 16:45 WBC 6.95 (4.8-10.8) K/uL RBC 4.18 L (4.2-5.4) M/uL Hgb 12.2 (12.0-16.0) g/dL Hct 37.6 (37-47) % MCV 90.0 (80-100) fL MCH 29.2 (25-34) pg MCHC 32.4 (32-36) g/dL RDW Std Deviation 49.3 H (36.4-46.3) fL RDW Coeff of Lilian 15.0 H (11.5-14.5) % Plt Count 315 (130-400) K/uL MPV 9.1 (7.4-10.4) fL Immature Gran % (Auto) 0.3 % Neut % (Auto) 79.3 % Lymph % (Auto) 12.2 % Hutchinson % (Auto) 5.9 % Eos % (Auto) 2.2 % Baso % (Auto) 0.1 % Neut # (Auto) 5.51 (1.4-6.5) K/uL Lymph # (Auto) 0.85 L (1.2-3.4) K/uL Hutchinson # (Auto) 0.41 (0.11-0.59) K/uL Eos # (Auto) 0.15 (0-0.5) K/uL Baso # (Auto) 0.01 (0-0.2) K/uL Immature Gran # (Auto) 0.02 (0.00-0.02) K/uL Sodium 138 (136-145) mmol/L Potassium 4.0 (3.5-5.1) mmol/L Chloride 103 (98-107) mmol/L Carbon Dioxide 28 (21-32) mmol/L Anion Gap 7 (3-11) BUN 10 (6-23) mg/dl Creatinine 0.74 (0.6-1.2) mg/dl Est Cr Clr Drug Dosing Not Reportable Est GFR ( Amer) 85.6 ml/min Est GFR (Non-Af Amer) 73.9 ml/min BUN/Creatinine Ratio 13.5 (10-20) Glucose 137 H (70-99(Fasting)) mg/dl Lactate 2.0 (0.4-2.0) mmol/L Calcium 9.1 (8.5-10.1) mg/dl Magnesium 2.0 (1.7-2.4) mg/dl Total Bilirubin 0.4 (0.2-1.0) mg/dl AST 12 L (13-39) U/L ALT 8 (7-52) U/L Alkaline Phosphatase 106 H (34-104) U/L Total Protein 7.4 (6.0-8.3) gm/dl Albumin 3.6 (3.4-5.0) gm/dl Globulin 3.8 (2.5-4.0) gm/dl Albumin/Globulin Ratio 0.9 (0.9-2) TSH (0.300-4.500) uIu/ml SARS-CoV-2, RNA, NAAT (NEGATIVE) 12/01/21 12/01/21 Range/Units 16:45 20:05 WBC (4.8-10.8) K/uL RBC (4.2-5.4) M/uL Hgb (12.0-16.0) g/dL Hct (37-47) % MCV (80-100) fL MCH (25-34) pg MCHC (32-36) g/dL RDW Std Deviation (36.4-46.3) fL RDW Coeff of Lilian (11.5-14.5) % Plt Count (130-400) K/uL MPV (7.4-10.4) fL Immature Gran % (Auto) % Neut % (Auto) % Lymph % (Auto) % Hutchinson % (Auto) % Eos % (Auto) % Baso % (Auto) % Neut # (Auto) (1.4-6.5) K/uL Lymph # (Auto) (1.2-3.4) K/uL Hutchinson # (Auto) (0.11-0.59) K/uL Eos # (Auto) (0-0.5) K/uL Baso # (Auto) (0-0.2) K/uL Immature Gran # (Auto) (0.00-0.02) K/uL Sodium (136-145) mmol/L Potassium (3.5-5.1) mmol/L Chloride (98-107) mmol/L Carbon Dioxide (21-32) mmol/L Anion Gap (3-11) BUN (6-23) mg/dl Creatinine (0.6-1.2) mg/dl Est Cr Clr Drug Dosing Est GFR ( Amer) ml/min Est GFR (Non-Af Amer) ml/min BUN/Creatinine Ratio (10-20) Glucose (70-99(Fasting)) mg/dl Lactate (0.4-2.0) mmol/L Calcium (8.5-10.1) mg/dl Magnesium (1.7-2.4) mg/dl Total Bilirubin (0.2-1.0) mg/dl AST (13-39) U/L ALT (7-52) U/L Alkaline Phosphatase (34-104) U/L Total Protein (6.0-8.3) gm/dl Albumin (3.4-5.0) gm/dl Globulin (2.5-4.0) gm/dl Albumin/Globulin Ratio (0.9-2) TSH 4.492 (0.300-4.500) uIu/ml SARS-CoV-2, RNA, NAAT NEGATIVE (NEGATIVE) Administered Medications Apixaban (Apixaban 5 Mg Tablet) 10 mg PO BID [facility] Stop: 12/08/21 09:01 Last Admin: 12/02/21 00:13 Dose: 10 mg Documented by: [id number] Atorvastatin Calcium (Atorvastatin 10 Mg Tab) 10 mg PO QPM [facility] Stop: 12/31/21 23:07 Last Admin: 12/02/21 00:13 Dose: 10 mg Documented by: [id number] Cetirizine HCl (Cetirizine Hcl 10 Mg Tablet) 10 mg PO QPM [facility] Stop: 12/31/21 23:07 Last Admin: 12/02/21 00:12 Dose: 10 mg Documented by: [id number] Duloxetine HCl (Duloxetine Hcl 30 Mg Cap) 30 mg PO QPM [facility] Stop: 12/31/21 23:07 Last Admin: 12/02/21 00:12 Dose: 30 mg Documented by: [id number] Gabapentin (Gabapentin 400 Mg Cap) 400 mg PO QID [facility] Stop: 12/31/21 23:07 Last Admin: 12/02/21 00:11 Dose: 400 mg Documented by: [id number] Lisinopril (Lisinopril 10 Mg Tab) 10 mg PO QPM [facility] Stop: 12/31/21 23:07 Last Admin: 12/02/21 00:10 Dose: 10 mg Documented by: [id number] Multivitamins/Minerals (Calcium 600mg + Vit D 400 Iu Tab) 1 tab PO BID [facility] Stop: 12/31/21 23:07 Last Admin: 12/02/21 00:12 Dose: 1 tab Documented by: [id number] Discontinued Medications Acetaminophen (Acetaminophen 500 Mg Tab) 1,000 mg PO NOW STA Stop: 12/01/21 16:36 Last Admin: 12/01/21 17:24 Dose: 1,000 mg Documented by: [id number] Cefepime HCl (Maxipime) 2,000 mg in 20 mls @ 5 mls/min IV NOW STA; Protocol Stop: 12/01/21 16:38 Last Admin: 12/01/21 17:24 Dose: 5 mls/min Documented by: [id number] Imaging Data Radiologist's Impression: Chest X-Ray 12/01/21 16:35 SINGLE VIEW CHEST CLINICAL HISTORY: Generalized weakness. FINDINGS: An AP, portable, upright chest radiograph is compared to study dated 07/16/2018 and correlated with chest CT dated 08/27/2018. The examination is degraded by portable technique, apical lordotic positioning, and patient ro tation. A large hiatal hernia is noted. The cardiomediastinal silhouette is unremarkable noting atherosclerotic calcification of the thoracic aorta. There is bibasilar scarring/atelectasis. No airspace consolidation or large pleural effusion is identified. No pneumothorax is seen. The skeletal structures are osteopenic. The bony thorax is grossly intact. A bone island is again noted within a right anterior rib. Calcific tendinopathy is noted in the right shoulder. IMPRESSION: 1. No active disease in the chest. 2. Large hiatal hernia. ACT 112: Negative or not required by law. Electronically signed by: Timoteo Atkinson M.D. 12/01/2021 5:20 PM Venous Doppler Study 12/01/21 16:35 ULTRASOUND BILATERAL LOWER EXTREMITY VENOUS CLINICAL HISTORY: Lower extremity edema COMPARISON STUDY: Bilateral lower extremity venous ultrasound dated 07/16/2018. TECHNIQUE: Real-time, grayscale, and color Doppler sonography of the deep veins of the right and left lower extremity was performed from the inguinal crease to the calf. Compression and augmentation were utilized. FINDINGS: Right lower extremity: There is no sonographic evidence of deep venous thrombosis in the right lower extremity. The common femoral, superficial femo ral, and popliteal veins are patent and normally compressible. The greater saphenous vein and the profunda femoris vein at the junction with the common femoral vein are clear. The visualized calf veins are patent. Left lower extremity: There is occlusive deep venous thrombosis identified in one of the paired left popliteal veins. The left common femoral, superficial femoral, and the second popliteal vein are patent and normally compressible. The greater saphenous vein and the profunda femoris vein at the junction with the common femoral vein are clear. The visualized calf veins are patent. IMPRESSION: 1. There is occlusive deep venous thrombosis identified in 1 of the paired left popliteal veins. 2. The remaining deep veins of the left lower extremity are clear. 3. There is no sonographic evidence of deep venous thrombosis in the right lower extremity. ACT 112: Negative or not required by law. Electronically signed by: Timoteo Atkinson M.D. 12/01/2021 7:16 PM Discharge Plan Visit Data Chief Complaint: Leg Injury/Pain Stated Complaint: LEG PAIN, SWELLING ED Provider: Timoteo Crews Discharge Problem: Bilateral leg pain, Cellulitis, DVT (deep venous thrombosis), Pedal edema Patient Disposition: Admitted As Inpatient Condition: Fair Discharge Instructions Interventions: ED Discharge Assessment Last Done: 12/01/21 22:37
[2021-12-01 17:03] LABS: Basophils # (auto) 0.01 K/uL (0-0.2); Basophils % (auto) 0.1 %; Eosinophils # (auto) 0.15 K/uL (0-0.5); Eosinophils % (auto) 2.2 %; Hematocrit (blood only) 37.6 % (37-47); Hemoglobin 12.2 g/dL (12.0-16.0); Immature Granulocytes # (auto) 0.02 K/uL (0.00-0.02); Immature Granulocytes % (auto) 0.3 %; Lymphocytes # (auto) 0.85 K/uL (1.2-3.4); Lymphocytes % (auto) 12.2 %; Mean Corpuscular Hemoglobin 29.2 pg (25-34); Mean Corpuscular Hgb Conc 32.4 g/dL (32-36); Mean Platelet Volume 9.1 fL (7.4-10.4); Monocytes # (auto) 0.41 K/uL (0.11-0.59); Monocytes % (auto) 5.9 %; Neutrophils # (auto) 5.51 K/uL (1.4-6.5); Neutrophils % (auto) 79.3 %; Platelet Count 315 K/uL (130-400); RDW Standard Deviation 49.3 fL (36.4-46.3); Red Blood Count 4.18 M/uL (4.2-5.4); White Blood Count 6.95 K/uL (4.8-10.8)
--- NOTE | 2021-12-01 17:21 | XRay Report ---
SINGLE VIEW CHEST CLINICAL HISTORY: Generalized weakness. FINDINGS: An AP, portable, upright chest radiograph is compared to study dated 07/16/2018 and correlat ed with chest CT dated 08/27/2018. The examination is degraded by portable technique, apical lordotic positioning, and patient rotation. A large hiatal hernia is noted. The cardiomediastinal silhouette is unremarkable noting atherosclerotic calcification of the thoracic aorta. There is bibasilar scarri ng/atelectasis. No airspace consolidation or large pleural effusion is identified. No pneumothorax is seen. The skeletal structures are osteopenic. The bony thorax is grossly intact. A bone island is ag ain noted within a right anterior rib. Calcific tendinopathy is noted in the right shoulder. IMPRESSION: 1. No active disease in the chest. 2. Large hiatal hernia. ACT 112: Negative or not required by law. Electronically signed by: Timoteo Atkinson M.D. 12/01/2021 5:20 PM
[2021-12-01 17:24] LABS: Alanine Aminotransferase 8 U/L (7-52); Albumin Globulin Ratio 0.9 (0.9-2); Albumin Level 3.6 gm/dl (3.4-5.0); Alkaline Phosphatase 106 U/L (34-104); Anion Gap 7 (3-11); Aspartate Aminotransferase 12 U/L (13-39); BUN Creatinine Ratio 13.5 (10-20); Bilirubin,Total 0.4 mg/dl (0.2-1.0); Blood Urea Nitrogen 10 mg/dl (6-23); Calcium 9.1 mg/dl (8.5-10.1); Carbon Dioxide 28 mmol/L (21-32); Chloride 103 mmol/L (98-107); Est GFR (African American) 85.6 ml/min; Est GFR (Non-African American) 73.9 ml/min; Globulin 3.8 gm/dl (2.5-4.0); Glucose 137 mg/dl (70-99(Fasting)); Sodium 138 mmol/L (136-145); Total Protein 7.4 gm/dl (6.0-8.3)
--- NOTE | 2021-12-01 19:18 | Ultrasound Report ---
ULTRASOUND BILATERAL LOWER EXTREMITY VENOUS CLINICAL HISTORY: Lower extremity edema COMPARISON STUDY: Bilateral lower extremity venous ultrasound dated 07/16/2018. TECHNIQUE: Real-time, grayscale, and color Doppler sonography of the deep veins of the right and left lower extremity was performed from the inguinal crease to the calf. Compression and augmentation wer e utilized. FINDINGS: Right lower extremity: There is no sonographic evidence of deep venous thrombosis in the right lower extremity. The common femoral, superficial femoral, and popliteal veins are patent and normally compr essible. The greater saphenous vein and the profunda femoris vein at the junction with the common fem oral vein are clear. The visualized calf veins are patent. Left lower extremity: There is occlusive deep venous thrombosis identified in one of the paired left popliteal veins. The left common femoral, superficial femoral, and the second popliteal vein are preciado nt and normally compressible. The greater saphenous vein and the profunda femoris vein at the junctio n with the common femoral vein are clear. The visualized calf veins are patent. IMPRESSION: 1. There is occlusive deep venous thrombosis identified in 1 of the paired left popliteal veins. 2. The remaining deep veins of the left lower extremity are clear. 3. There is no sonographic evidence of deep venous thrombosis in the right lower extremity. ACT 112: Negative or not required by law. Electronically signed by: Timoteo Atkinson M.D. 12/01/2021 7:16 PM
--- NOTE | 2021-12-01 20:00 | History & Physical Report ---
Date of Service December 01, 2021 Assessment & Plan (1) DVT of leg (deep venous thrombosis): (2) Stasis dermatitis: (3) Benign essential hypertension: (4) Depression: (5) Generalized anxiety disorder: (6) Hyperlipidemia: (7) Hypothyroidism: (8) GERD without esophagitis: Plan: Day Wu is an 86-year-old female with past medical history of hypertension, hyperlipidemia, hypothyroidism, peripheral neuropathy, GERD, laryngeal cancer, who presents to [facility] due to bilateral lower extremity pain and swelling for the past few days. Found to have DVT in the left lower extremity. DVT of left leg Only possible risk factor for provoked DVT would be recent infection no hospital admission, surgery, malignancy in past 3 months Less likely to be due to inherited thrombophilia as this is her first VTE and would likely have presented at a younger age, additionally patient reports no known family history of blood clots Hemodynamically stable and no current signs of respiratory compromise/PE Admit to med telemetry Start Eliquis 10 mg twice daily x7 days, then transition to 5 mg twice daily no need for parenteral anticoagulant as patient hemodynamically stable without signs of further clot burden Cardiac monitoring and pulse oximetry Chronic venous stasis, possible cellulitis Patient has some clear chronic changes, though does have what seems to be a more acute worsening with significant redness and warmth Would be uncommon for her to have bilateral cellulitis, but cannot rule out infection in either leg at this time Received dose of cefepime in ED less concern for Pseudomonas as patient not diabetic Ceftriaxone going forward low concern for MRSA at this time, as patient does not live in a group setting and has not been hospitalized recently If worsening or seemingly stagnant infection, can consider MRSA coverage Blood cultures taken in ED, follow results JIM stockings, elevate legs Low-sodium diet Chronic conditions Hyperlipidemia: Continue atorvastatin Depression/anxiety: Continue duloxetine Allergic rhinitis: Continue cetirizine and Flonase Hypothyroidism: Continue Synthroid Hypertension: Continue lisinopril Overactive bladder: Continue mirabegron Peripheral neuropathy/chronic pain Continue gabapentin and oxycodone as needed DVT prophylaxis: Starting on Eliquis due to DVT Diet: Heart healthy, low-sodium Dispo: Admit to med telemetry CODE STATUS: Conditional patient would like everything done if there is reasonable expectation of recovery, she would not want CPR or intubation if her likelihood of recovery is minimal History of Present Illness Primary Care Provider: Mercedes Braton MD Day Wu is an 86-year-old female with past medical history of hypertension, hyperlipidemia, hypothyroidism, peripheral neuropathy, GERD, laryngeal cancer, who presents to [facility] due to bilateral lower extremity pain and swelling for the past few days. Patient was initially seen as an outpatient for cellulitis of the right leg the first week of October. She was treated with Keflex at that time. Shortly after, patient had visited ED in [place] due to concerns Keflex had not been working and was started on clindamycin. She presented to our ED on November 02 due to continued symptoms. At that visit, she stated that she had stopped taking the clindamycin due to stomach upset. She was discharged from our ED on doxycycline. On November 11, was seen by her primary care provider and the cellulitis of her leg was believed to have resolved. Today, patient presents with complaints of bilateral leg pain and swelling. Intensity is about 7/10, and she has noticed that her legs are redder than usual. She has not had any other associated symptoms including fever, chills, nausea, vomiting, abdominal pain, chest pain, palpitations, shortness of breath, cough, headache, dizziness. In our ED today, patient was given acetaminophen 1000 mg p.o. x1, and received a dose of cefepime. Blood cultures were drawn prior to antibiotic initiation. She had a venous Doppler of the bilateral lower extremities showing an occlusive DVT in one of the paired left popliteal veins. Remaining deep veins of the left lower extremity and right lower extremity were clear. She had a chest x-ray showing no active disease in the chest and a large hiatal hernia. Lab work showed normal white count, normal hemoglobin, normal platelets, normal electrolytes, mild elevation in alk phos to 106, and TSH of 4.492. At the time of my evaluation, patient continued to report some tenderness to the bilateral lower extremities. We discussed her chronic venous stasis and how sodium intake and have a big role in this. She stated that she does not consume much salt in her diet; however, upon further questioning, patient did admit to regular consumption of canned soups and deli meats. Allergies Allergy/AdvReac Type Severity Reaction Status Date / Time Sulfa (Sulfonamide Allergy Severe RASH Verified 12/01/21 16:15 Antibiotics) sulfamethoxazole Allergy Intermediate chest pain Verified 12/01/21 16:15 trimethoprim Allergy Intermediate chest pain Verified 12/01/21 16:15 amoxicillin Allergy Mild funny Verified 12/01/21 16:15 feeling in feet and was told she had a reaction clarithromycin Allergy Unknown CHEST PAIN Verified 12/01/21 16:15 pollen extracts Allergy Unknown hayfever Verified 12/01/21 16:15 Home Medications Medication Instructions Recorded Confirmed Type calcium carbonate 600 mg-vitamin 1 tab PO BID #180 tab 02/17/19 12/01/21 Rx D3 10 mcg (400 unit) tablet (Calcium 600 + D(3)) lutein 25 mg-zeaxanthin 5 mg 1 cap PO QPM 09/05/19 12/01/21 History capsule cranberry extract 500 mg capsule 500 mg PO QPM cap 12/28/19 12/01/21 History cetirizine 10 mg tablet 10 mg PO QPM 02/06/21 12/01/21 History coenzyme Q10 100 mg capsule 100 mg PO QPM 02/06/21 12/01/21 History (CoQ-10) levothyroxine 75 mcg tablet 75 mcg PO QAM 02/06/21 12/01/21 History (Synthroid) lisinopril 10 mg tablet 10 mg PO QPM #90 tab 03/13/21 12/01/21 Rx gabapentin 400 mg capsule 400 mg PO QID #120 cap 06/25/21 12/01/21 Rx mirabegron 25 mg tablet,extended 25 mg PO QAM #30 tab 07/25/21 12/01/21 Rx release 24 hr (Myrbetriq) fluticasone propionate 50 2 spray INTRANASAL DAILY #16 g 08/30/21 12/01/21 Rx mcg/actuation nasal spray,suspension (Flonase Allergy Relief) atorvastatin 10 mg tablet 10 mg PO QPM #90 tab 09/09/21 12/01/21 Rx duloxetine 30 mg capsule,delayed 30 mg PO QPM #30 cap 11/01/21 12/01/21 Rx release omeprazole 20 mg capsule,delayed 20 mg PO DAILY #90 cap 11/12/21 12/01/21 Rx release ondansetron HCl 4 mg tablet 4 mg PO Q6H PRN #30 tab 11/19/21 12/01/21 Rx oxycodone 5 mg tablet 5 mg PO Q4H PRN #150 tab 11/22/21 12/01/21 Rx Past Med/Surg History Medical History 2019 novel coronavirus not detected Benign essential hypertension Cough Depression Gait abnormality Generalized anxiety disorder Generalized osteoarthritis of multiple sites GERD (gastroesophageal reflux disease) HTN (hypertension) Hyperlipidemia Hypothyroidism Idiopathic peripheral neuropathy Kyphosis Laryngeal squamous cell carcinoma Lumbar canal stenosis Multiple pulmonary nodules Osteoarthritis of both knees Pain syndrome, chronic Recurrent UTI Spinal stenosis Surgical History H/O ligation of vein History of appendectomy History of breast biopsy History of cataract surgery History of esophagogastroduodenoscopy (EGD) History of left knee replacement History of lumbar surgery History of right knee joint replacement History of surgery (~2016) History of tooth extraction Hx of cholecystectomy Hx of colonoscopy Family History Mother Coronary heart disease Brother Coronary heart disease Sister Coronary heart disease Myocardial infarction Father Myocardial infarction Other No family history of adverse response to anesthesia Denies family history of Ovarian cancer Prostate cancer Breast cancer Colorectal cancer Social History Smoking Status: Never smoker Second Hand Exposure: Yes ( A CHILD); Hx Alcohol Use: No Hx Substance Use: No Preferred Language: Azerbaijani Communication Ability: Effective Visual Impairment: Partially Limited Hearing Ability: Normal 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 Beliefs That Will Affect Care: None marital status: Current Living Situation: Alone Current Living Situation Comment: DAUGHTER LIVES CLOSE TO PT, ASSISTS NEEDED current occupational status: retired Feels Safe at Home: Yes Childhood Exposure to Second-Hand Smoke: Yes caffeine: Yes (coffee/tea) during the past year weight has: remained stable Dental Care, Regularly: Yes Physical Activity Frequency: 1-2 Times per Week Physical Activity Frequency Comment: uses walker Seatbelt Use: always Sunscreen Use: Yes Do you think of yourself as: straight/heterosexual Assistive Devices: Cane, Glasses and Walker Review of Systems Review of Systems: All systems reviewed & are unremarkable except as noted in HPI & below Physical Exam Physical Exam: GENERAL: A&Ox3. NAD. HEENT: PERRL, EOMI. Moist mucous membranes. NECK: No JVD. No lymphadenopathy. CHEST/LUNGS: CTAB A/P. No crackles, wheezes, rales, rhonchi. HEART: RRR. No m/g/r. No carotid bruits. ABDOMEN: NT/ND, soft. BS+ x4 EXTREMITIES: 3+ swelling to knees bilaterally. Chronic skin changes/scaliness noted. Both legs red and warm. No open wounds or cuts. No seepage or drainage. SKIN: Warm and dry. No rashes or lesions. PSYCHIATRIC: Euthymic affect, no SI, no pressured speech, no hallucinations NEUROLOGIC: No FND. CN II-XII grossly intact. Results & Data Results & Data ([facility]) Vital Signs (Past 12 Hours) Vital Signs Temp Pulse Pulse Resp BP BP Pulse Ox 12/01/21 17:32 101 H 18 165/84 H 99 12/01/21 16:06 36.7 C 106 H 20 144/85 H 96 Resident Activity Tracking Resident Involvement: Resident Care Provided Care Provided: Adult Hospital Medicine (1) Stasis dermatitis Laterality: left Qualified Code(s): I87.2 - Venous insufficiency (chronic) (peripheral)
[2021-12-01] MEDS ORDERED: ACETAMINOPHEN 325 MG TAB PO PRN (23:08)
[2021-12-01] MEDS ORDERED: POLYETHYLENE (MIRALAX) 17 GM PACK PO PRN (23:08)
[2021-12-01] MEDS ORDERED: NON-FORMULARY MEDICATION (Coenzyme Q10 [Coq-10] 100 mg capsule) PO SCH (23:08)
[2021-12-01] MEDS ORDERED: ONDANSETRON 4 MG OD TAB PO PRN (23:36)
[2021-12-02] MEDS: lisinopril 10 MG TAB PO SCH ×2 (00:10→21:01)
[2021-12-02] MEDS: GABAPENTIN 400 MG CAP PO SCH ×5 (00:11→21:01)
[2021-12-02] MEDS: CALCIUM 600MG + VIT D 400 IU TAB PO SCH ×3 (00:12→21:00)
[2021-12-02] MEDS: DULoxetine HCL 30 MG CAP PO SCH ×2 (00:12→21:01)
[2021-12-02] MEDS: CETIRIZINE HCL 10 MG TABLET PO SCH ×2 (00:12→21:01)
[2021-12-02] MEDS: ATORVASTATIN 10 MG TAB PO SCH ×2 (00:13→21:00)
[2021-12-02] MEDS: APIXABAN 5 MG TABLET PO SCH ×3 (00:13→20:59)
[2021-12-02] MEDS: cefTRIAXone SODIUM 2,000 MG in DEXTROSE 5% 50 ML IV SCH (06:13)
[2021-12-02] MEDS: LEVOTHYROXINE SODIUM 75 MCG TABLET PO SCH (06:13)
[2021-12-02 06:31] LABS: Basophils # (auto) 0.01 K/uL (0-0.2); Basophils % (auto) 0.2 %; Eosinophils # (auto) 0.17 K/uL (0-0.5); Eosinophils % (auto) 3.3 %; Hemoglobin 11.3 g/dL (12.0-16.0); Immature Granulocytes # (auto) 0.01 K/uL (0.00-0.02); Immature Granulocytes % (auto) 0.2 %; Lymphocytes # (auto) 1.11 K/uL (1.2-3.4); Lymphocytes % (auto) 21.8 %; Mean Corpuscular Hemoglobin 29.3 pg (25-34); Mean Corpuscular Hgb Conc 33.2 g/dL (32-36); Mean Corpuscular Volume 88.1 fL (80-100); Monocytes # (auto) 0.54 K/uL (0.11-0.59); Monocytes % (auto) 10.6 %; Neutrophils # (auto) 3.26 K/uL (1.4-6.5); Neutrophils % (auto) 63.9 %; Platelet Count 301 K/uL (130-400); RDW Standard Deviation 48.3 fL (36.4-46.3); Red Blood Count 3.86 M/uL (4.2-5.4)
[2021-12-02 06:41] LABS: BUN Creatinine Ratio 14.5 (10-20); Creatinine Clr Calc Pharmacy 81.6 ml/min; Est GFR (African American) 99.1 ml/min; Est GFR (Non-African American) 85.5 ml/min; Potassium 3.9 mmol/L (3.5-5.1)
--- NOTE | 2021-12-02 07:36 | Hospitalist Progress Note ---
Date of Service December 02, 2021 Assessment & Plan (1) DVT of leg (deep venous thrombosis): Plan: Day Wu is an 86-year-old female with past medical history of hypertension, hyperlipidemia, hypothyroidism, peripheral neuropathy, GERD, laryngeal cancer, who presents to [facility] due to bilateral lower extremity pain and swelling for the past few days. Found to have DVT in the left lower extremity. Was recently seen Feb for cellulitis, placed on Keflex, went to [place] ER, placed on Clinda for such cellulitis, then back to ER here and was sent on Doxy PO to complete course. Reportedly cellulitis resolved on PCP f/u Nov 11. --> Did reportedly have venous US RLE which was negative previously per PCP note, and that patient was also +for Flu A 11/07 DVT of LEFT leg Venous Doppler b/l LE with occlusive deep venous thrombosis identified in 1 of the paired left popliteal veins. Only possible risk factor for provoked DVT would be recent infection no hospital admission, surgery, malignancy in past 3 months (has hx laryngeal ca, treated. most recently seen by ENT last February for exophytic lesion R inferior turbinate) Less likely to be due to inherited thrombophilia as this is her first VTE and would likely have presented at a younger age, additionally patient reports no known family history of blood clots Hemodynamically stable and no current signs of respiratory compromise/PE Started on Eliquis 10mg BID x 7 days, then transition to 5mg BID for PM dose on 12/08 Monitoring on telemetry --> SR w/ 1st degree AV block, rates in 80s On room air 92%. CXR negative for acute process but will order incentive spirometer to prevent pneumonia given poor inspiratory effort on examination Tx cellulitis as below PT/OT consults pending-- patient hopeful for discharge tomorrow (2) Cellulitis: Plan: Chronic venous stasis, possible cellulitis Patient has some clear chronic changes, though does have what seems to be a more acute worsening with significant redness and warmth Recently completed course of abx for cellulitis as above Cefepime x 1 in ER, continues on Rocephin (low concern for MRSA, does not live in group setting/not hospitalized recently) Blood cultures pending Adrian stockings to unaffected leg, elevate as much as possible Asked RN to derek areas 12/02 to monitor for improvement Continue to monitor --> consider d/c on Doxy though, despite low concern for MRSA as she did most recently use this to finish up course for cellulitis, previously treated with Keflex without improvement and was unable to tolerate GI symptoms from the clindamycin (no diarrhea, if occurs would check for cdiff) Continue low sodium diet (3) Stasis dermatitis: (4) Benign essential hypertension: Plan: and HLD BP elevated but stable, 160/78 Continue lisinopril, atorvastatin Monitor (5) Depression: Plan: Continue duloxetine (6) Generalized anxiety disorder: Plan: with depression, on cymbalta (7) Hyperlipidemia: Plan: Continue mirabegron (8) Hypothyroidism: Plan: continue Synthroid (9) GERD without esophagitis: Plan: also has LARGE hiatal hernia on omeprazole 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 , will order protonix PO while inpatient (10) Allergic rhinitis: Plan: Chronic, continue home cetirizine, flonase Peripheral neuropathy/chronic pain Continue gabapentin and oxycodone as needed Plan: CODE STATUS: Conditional patient would like everything done if there is reasonable expectation of recovery, she would not want CPR or intubation if her likelihood of recovery is minimal Have ordered PT/OT consults --> pending She is hopeful for d/c in AM on Eliquis/PO abx for cellulitis Admission and Anticipated Discharge Date Admission Date: December 01, 2021 Subjective Patient evaluated this morning Doing well Hopeful for d/c in next 24 hours States pain to b/l legs but states improvement. Discussed continuing to treat for a cellulitis. Does note she has not been as active/mobile recently due to not feeling well this past month and this could have been contributing to development of the DVT. She does endorse she had the flu, well rather "flu shot" last month, but upon further questioning she did note she received and took a course of tamiflu for such. Discussed prior + result. No fever/chills, chest pain, shortness of breath, cough/sputum production, abdominal pain, nausea or vomiting at this time. Questions/concerns addressed. Review of Systems Review of Systems: All systems reviewed & are unremarkable except as noted in HPI & below Physical Exam Physical Exam: GENERAL: A&Ox3. NAD, sitting up in bed on the phone HEENT: PERRL, EOMI. MM slightly dry NECK: No JVD. No lymphadenopathy. CHEST/LUNGS: poor inspiratory effort, but CTAB, bibasilar crackles, no w heezing/rales, on room air HEART: RRR. No m/g/r. No carotid bruits. ABDOMEN: NT/ND, soft. BS+ x4 EXTREMITIES: 3+ swelling to knees bilaterally. Chronic skin changes/scaliness noted. Both legs red and warm. No open wounds or cuts. No seepage or drainage. pulses diminished LLE. LLE calf edema > RLE SKIN: b/l chronic venous stasis changes, along with erythema/warmth, tender to palpation PSYCHIATRIC: Euthymic affect, no SI, no pressured speech, no hallucinations NEUROLOGIC: No FND. CN II-XII grossly intact. Results & Data Results & Data ([facility]) Vital Signs (Past 12 Hours) Vital Signs Temp Pulse Pulse Resp BP Pulse Ox 12/02/21 04:00 36.6 C 84 18 134/76 92 12/02/21 03:51 90 12/02/21 00:53 36.7 C 88 18 160/80 H 94 12/01/21 22:05 86 16 140/75 96 Laboratory Results 12/02/21 12/02/21 12/01/21 Range/Units 05:59 05:59 20:05 WBC 5.10 (4.8-10.8) K/uL RBC 3.86 L (4.2-5.4) M/uL Hgb 11.3 L (12.0-16.0) g/dL Hct 34.0 L (37-47) % MCV 88.1 (80-100) fL MCH 29.3 (25-34) pg MCHC 33.2 (32-36) g/dL RDW Std Deviation 48.3 H (36.4-46.3) fL RDW Coeff of Lilian 15.0 H (11.5-14.5) % Plt Count 301 (130-400) K/uL MPV 9.0 (7.4-10.4) fL Immature Gran % (Auto) 0.2 % Neut % (Auto) 63.9 % Lymph % (Auto) 21.8 % [place] % (Auto) 10.6 % Eos % (Auto) 3.3 % Baso % (Auto) 0.2 % Neut # (Auto) 3.26 (1.4-6.5) K/uL Lymph # (Auto) 1.11 L (1.2-3.4) K/uL [place] # (Auto) 0.54 (0.11-0.59) K/uL Eos # (Auto) 0.17 (0-0.5) K/uL Baso # (Auto) 0.01 (0-0.2) K/uL Immature Gran # (Auto) 0.01 (0.00-0.02) K/uL Sodium 140 (136-145) mmol/L Potassium 3.9 (3.5-5.1) mmol/L Chloride 107 (98-107) mmol/L Carbon Dioxide 28 (21-32) mmol/L Anion Gap 5 (3-11) BUN 8 (6-23) mg/dl Creatinine 0.55 L (0.6-1.2) mg/dl Est Cr Clr Drug Dosing 81.6 Est GFR ( Amer) 99.1 ml/min Est GFR (Non-Af Amer) 85.5 ml/min BUN/Creatinine Ratio 14.5 (10-20) Glucose 101 H (70-99(Fasting)) mg/dl Lactate (0.4-2.0) mmol/L Calcium 9.0 (8.5-10.1) mg/dl Magnesium 2.0 (1.7-2.4) mg/dl Total Bilirubin (0.2-1.0) mg/dl AST (13-39) U/L ALT (7-52) U/L Alkaline Phosphatase (34-104) U/L Total Protein (6.0-8.3) gm/dl Albumin (3.4-5.0) gm/dl Globulin (2.5-4.0) gm/dl Albumin/Globulin Ratio (0.9-2) TSH (0.300-4.500) uIu/ml SARS-CoV-2, RNA, NAAT NEGATIVE (NEGATIVE) 12/01/21 12/01/21 12/01/21 Range/Units 16:45 16:45 16:45 WBC (4.8-10.8) K/uL RBC (4.2-5.4) M/uL Hgb (12.0-16.0) g/dL Hct (37-47) % MCV (80-100) fL MCH (25-34) pg MCHC (32-36) g/dL RDW Std Deviation (36.4-46.3) fL RDW Coeff of Lilian (11.5-14.5) % Plt Count (130-400) K/uL MPV (7.4-10.4) fL Immature Gran % (Auto) % Neut % (Auto) % Lymph % (Auto) % [place] % (Auto) % Eos % (Auto) % Baso % (Auto) % Neut # (Auto) (1.4-6.5) K/uL Lymph # (Auto) (1.2-3.4) K/uL [place] # (Auto) (0.11-0.59) K/uL Eos # (Auto) (0-0.5) K/uL Baso # (Auto) (0-0.2) K/uL Immature Gran # (Auto) (0.00-0.02) K/uL Sodium 138 (136-145) mmol/L Potassium 4.0 (3.5-5.1) mmol/L Chloride 103 (98-107) mmol/L Carbon Dioxide 28 (21-32) mmol/L Anion Gap 7 (3-11) BUN 10 (6-23) mg/dl Creatinine 0.74 (0.6-1.2) mg/dl Est Cr Clr Drug Dosing Not Reportable Est GFR ( Amer) 85.6 ml/min Est GFR (Non-Af Amer) 73.9 ml/min BUN/Creatinine Ratio 13.5 (10-20) Glucose 137 H (70-99(Fasting)) mg/dl Lactate 2.0 (0.4-2.0) mmol/L Calcium 9.1 (8.5-10.1) mg/dl Magnesium 2.0 (1.7-2.4) mg/dl Total Bilirubin 0.4 (0.2-1.0) mg/dl AST 12 L (13-39) U/L ALT 8 (7-52) U/L Alkaline Phosphatase 106 H (34-104) U/L Total Protein 7.4 (6.0-8.3) gm/dl Albumin 3.6 (3.4-5.0) gm/dl Globulin 3.8 (2.5-4.0) gm/dl Albumin/Globulin Ratio 0.9 (0.9-2) TSH 4.492 (0.300-4.500) uIu/ml SARS-CoV-2, RNA, NAAT (NEGATIVE) 12/01/21 Range/Units 16:45 WBC 6.95 (4.8-10.8) K/uL RBC 4.18 L (4.2-5.4) M/uL Hgb 12.2 (12.0-16.0) g/dL Hct 37.6 (37-47) % MCV 90.0 (80-100) fL MCH 29.2 (25-34) pg MCHC 32.4 (32-36) g/dL RDW Std Deviation 49.3 H (36.4-46.3) fL RDW Coeff of Lilian 15.0 H (11.5-14.5) % Plt Count 315 (130-400) K/uL MPV 9.1 (7.4-10.4) fL Immature Gran % (Auto) 0.3 % Neut % (Auto) 79.3 % Lymph % (Auto) 12.2 % [place] % (Auto) 5.9 % Eos % (Auto) 2.2 % Baso % (Auto) 0.1 % Neut # (Auto) 5.51 (1.4-6.5) K/uL Lymph # (Auto) 0.85 L (1.2-3.4) K/uL [place] # (Auto) 0.41 (0.11-0.59) K/uL Eos # (Auto) 0.15 (0-0.5) K/uL Baso # (Auto) 0.01 (0-0.2) K/uL Immature Gran # (Auto) 0.02 (0.00-0.02) K/uL Sodium (136-145) mmol/L Potassium (3.5-5.1) mmol/L Chloride (98-107) mmol/L Carbon Dioxide (21-32) mmol/L Anion Gap (3-11) BUN (6-23) mg/dl Creatinine (0.6-1.2) mg/dl Est Cr Clr Drug Dosing Est GFR ( Amer) ml/min Est GFR (Non-Af Amer) ml/min BUN/Creatinine Ratio (10-20) Glucose (70-99(Fasting)) mg/dl Lactate (0.4-2.0) mmol/L Calcium (8.5-10.1) mg/dl Magnesium (1.7-2.4) mg/dl Total Bilirubin (0.2-1.0) mg/dl AST (13-39) U/L ALT (7-52) U/L Alkaline Phosphatase (34-104) U/L Total Protein (6.0-8.3) gm/dl Albumin (3.4-5.0) gm/dl Globulin (2.5-4.0) gm/dl Albumin/Globulin Ratio (0.9-2) TSH (0.300-4.500) uIu/ml SARS-CoV-2, RNA, NAAT (NEGATIVE) Diagnostic Findings Chest X-Ray 12/01/21 16:35 SINGLE VIEW CHEST CLINICAL HISTORY: Generalized weakness. FINDINGS: An AP, portable, upright chest radiograph is compared to study dated 07/16/2018 and correlated with chest CT dated 08/27/2018. The examination is degraded by portable technique, apical lordotic positioning, and patient rotati on. A large hiatal hernia is noted. The cardiomediastinal silhouette is unremarkable noting atherosclerotic calcification of the thoracic aorta. There is bibasilar scarring/atelectasis. No airspace consolidation or large pleural effusion is identified. No pneumothorax is seen. The skeletal structures are osteopenic. The bony thorax is grossly intact. A bone island is again noted within a right anterior rib. Calcific tendinopathy is noted in the right shoulder. IMPRESSION: 1. No active disease in the chest. 2. Large hiatal hernia. ACT 112: Negative or not required by law. Electronically signed by: Timoteo Atkinson M.D. 12/01/2021 5:20 PM Venous Doppler Study 12/01/21 16:35 ULTRASOUND BILATERAL LOWER EXTREMITY VENOUS CLINICAL HISTORY: Lower extremity edema COMPARISON STUDY: Bilateral lower extremity venous ultrasound dated 07/16/2018. TECHNIQUE: Real-time, grayscale, and color Doppler sonography of the deep veins of the right and left lower extremity was performed from the inguinal crease to the calf. Compression and augmentation were utilized. FINDINGS: Right lower extremity: There is no sonographic evidence of deep venous thro mbosis in the right lower extremity. The common femoral, superficial femoral, and popliteal veins are patent and normally compressible. The greater saphenous vein and the profunda femoris vein at the junction with the common femoral vein are clear. The visualized calf veins are patent. Left lower extremity: There is occlusive deep venous thrombosis identified in one of the paired left popliteal veins. The left common femoral, superficial femoral, and the second popliteal vein are patent and normally compressible. The greater saphenous vein and the profunda femoris vein at the junction with the common femoral vein are clear. The visualized calf veins are patent. IMPRESSION: 1. There is occlusive deep venous thrombosis identified in 1 of the paired left popliteal veins. 2. The remaining deep veins of the left lower extremity are clear. 3. There is no sonographic evidence of deep venous thrombosis in the right lower extremity. ACT 112: Negative or not required by law. Electronically signed by: Timoteo Atkinson M.D. 12/01/2021 7:16 PM PG Care Time/CCT Total # of Minutes Spent Total Time Spent with Patient: Total time spent is greater than 50% in coordination of care (as documented) at patient's floor/unit and/or counseling patient: Coding Level of Care Code 88813 Subseq Hosp Care Lvl 3 Diagnoses DVT of leg (deep venous thrombosis) I82.409 Stasis dermatitis I87.2 Laterality: left Benign essential hypertension I10 Depression F32.9 Generalized anxiety disorder F41.1 Hyperlipidemia E78.5 Hypothyroidism E03.9 GERD without esophagitis K21.9 Cellulitis L03.119 Laterality: unspecified laterality Site of cellulitis: extremity Site of cellulitis of extremity: lower extremity Allergic rhinitis J30.9 (1) Stasis dermatitis Laterality: left Qualified Code(s): I87.2 - Venous insufficiency (chronic) (peripheral) (2) Cellulitis Laterality: unspecified laterality Site of cellulitis: extremity Site of cellulitis of extremity: lower extremity Qualified Code(s): L03.119 - Cellulitis of unspecified part of limb
[2021-12-02] MEDS: MIRABEGRON ER 25 MG TAB PO SCH (08:05)
[2021-12-02] MEDS: FLUTICASONE PROPIONATE NA SPR 16 GM BTL SCH (08:06)
[2021-12-02] MEDS: oxyCODONE HCL IR 5 MG TAB (IMMEDIATE RELEASE) PO PRN ×3 (11:27→21:01)
[2021-12-02 14:40] LABS: Appearance Urine Clear (Clear); Bilirubin Urine Negative (Negative); Blood Urine Negative (Negative); Color Urine Yellow; Glucose Urine UA Negative (Negative); Ketones Urine Negative (Negative); Leukocyte Esterase Urine Negative (Negative); Nitrite Urine Negative (Negative); Protein Urine Negative (Negative); Specific Gravity Urine 1.012 (1.000-1.030); Urobilinogen Urine Negative (Negative); pH Urine >= 9.0 (4.5-7.5)
[2021-12-02] MEDS: PANTOprazole 40 MG TAB PO SCH (15:29)
[2021-12-03] MEDS: oxyCODONE HCL IR 5 MG TAB (IMMEDIATE RELEASE) PO PRN ×3 (01:15→11:35)
[2021-12-03] MEDS: LEVOTHYROXINE SODIUM 75 MCG TABLET PO SCH (06:15)
[2021-12-03] MEDS: cefTRIAXone SODIUM 2,000 MG in DEXTROSE 5% 50 ML IV SCH (06:15)
[2021-12-03 06:38] LABS: Hematocrit (blood only) 36.7 % (37-47); Hemoglobin 11.9 g/dL (12.0-16.0); Mean Corpuscular Hemoglobin 28.8 pg (25-34); Mean Corpuscular Hgb Conc 32.4 g/dL (32-36); Mean Corpuscular Volume 88.9 fL (80-100); Mean Platelet Volume 8.9 fL (7.4-10.4); Platelet Count 279 K/uL (130-400); RDW Coefficient of Variation 15.3 % (11.5-14.5); RDW Standard Deviation 49.4 fL (36.4-46.3); Red Blood Count 4.13 M/uL (4.2-5.4); White Blood Count 5.63 K/uL (4.8-10.8)
[2021-12-03 07:02] VITALS: O2SAT 94
[2021-12-03 07:06] LABS: Albumin Level 3.2 gm/dl (3.4-5.0); BUN Creatinine Ratio 16.9 (10-20); Bilirubin Direct 0.1 mg/dl (0-0.2); Bilirubin,Total 0.5 mg/dl (0.2-1.0); Calcium 8.8 mg/dl (8.5-10.1); Est GFR (African American) 93.8 ml/min; Potassium 3.7 mmol/L (3.5-5.1); Total Protein 6.8 gm/dl (6.0-8.3)
[2021-12-03 07:39] VITALS: PULSE 79
[2021-12-03] MEDS: GABAPENTIN 400 MG CAP PO SCH ×2 (08:21→12:27)
[2021-12-03] MEDS: CALCIUM 600MG + VIT D 400 IU TAB PO SCH (08:21)
[2021-12-03] MEDS: PANTOprazole 40 MG TAB PO SCH (08:21)
[2021-12-03] MEDS: APIXABAN 5 MG TABLET PO SCH (08:21)
[2021-12-03] MEDS: MIRABEGRON ER 25 MG TAB PO SCH (08:21)
[2021-12-03] MEDS: FLUTICASONE PROPIONATE NA SPR 16 GM BTL SCH (08:22)
--- NOTE | 2021-12-03 08:39 | Hospitalist Progress Note ---
Date of Service December 03, 2021 Assessment & Plan Admission and Anticipated Discharge Date Admission Date: December 01, 2021 Results & Data Results & Data ([facility]) Vital Signs (Past 12 Hours) Vital Signs Temp Pulse Pulse Resp BP Pulse Ox 12/03/21 07:38 79 12/03/21 07:01 36.6 C 78 18 124/73 94 12/03/21 04:06 90 12/03/21 03:02 37.1 C 82 18 116/64 91 12/02/21 23:21 37.1 C 89 18 137/75 92 Laboratory Results 12/03/21 12/03/21 12/03/21 Range/Units 06:28 06:28 06:28 WBC 5.63 (4.8-10.8) K/uL RBC 4.13 L (4.2-5.4) M/uL Hgb 11.9 L (12.0-16.0) g/dL Hct 36.7 L (37-47) % MCV 88.9 (80-100) fL MCH 28.8 (25-34) pg MCHC 32.4 (32-36) g/dL RDW Std Deviation 49.4 H (36.4-46.3) fL RDW Coeff of Lilian 15.3 H (11.5-14.5) % Plt Count 279 (130-400) K/uL MPV 8.9 (7.4-10.4) fL Sodium 139 (136-145) mmol/L Potassium 3.7 (3.5-5.1) mmol/L Chloride 105 (98-107) mmol/L Carbon Dioxide 27 (21-32) mmol/L Anion Gap 7 (3-11) BUN 11 (6-23) mg/dl Creatinine 0.65 (0.6-1.2) mg/dl Est Cr Clr Drug Dosing 69.0 ml/min Est GFR ( Amer) 93.8 ml/min Est GFR (Non-Af Amer) 81.0 ml/min BUN/Creatinine Ratio 16.9 (10-20) Glucose 91 (70-99(Fasting)) mg/dl Calcium 8.8 (8.5-10.1) mg/dl Total Bilirubin 0.5 (0.2-1.0) mg/dl Direct Bilirubin 0.1 (0-0.2) mg/dl AST 10 L (13-39) U/L ALT 6 L (7-52) U/L Alkaline Phosphatase 88 (34-104) U/L Total Protein 6.8 (6.0-8.3) gm/dl Albumin 3.2 L (3.4-5.0) gm/dl Vitamin B12 375 (180-914) pg/ml Urine Color Urine Appearance (Clear) Urine pH (4.5-7.5) Ur Specific [place] (1.000-1.030) Urine Protein (Negative) Urine Glucose (UA) (Negative) Urine Ketones (Negative) Urine Blood (Negative) Urine Nitrite (Negative) Urine Bilirubin (Negative) Urine Urobilinogen (Negative) Ur Leukocyte Esterase (Negative) 12/02/21 Range/Units Unknown WBC (4.8-10.8) K/uL RBC (4.2-5.4) M/uL Hgb (12.0-16.0) g/dL Hct (37-47) % MCV (80-100) fL MCH (25-34) pg MCHC (32-36) g/dL RDW Std Deviation (36.4-46.3) fL RDW Coeff of Lilian (11.5-14.5) % Plt Count (130-400) K/uL MPV (7.4-10.4) fL Sodium (136-145) mmol/L Potassium (3.5-5.1) mmol/L Chloride (98-107) mmol/L Carbon Dioxide (21-32) mmol/L Anion Gap (3-11) BUN (6-23) mg/dl Creatinine (0.6-1.2) mg/dl Est Cr Clr Drug Dosing ml/min Est GFR ( Amer) ml/min Est GFR (Non-Af Amer) ml/min BUN/Creatinine Ratio (10-20) Glucose (70-99(Fasting)) mg/dl Calcium (8.5-10.1) mg/dl Total Bilirubin (0.2-1.0) mg/dl Direct Bilirubin (0-0.2) mg/dl AST (13-39) U/L ALT (7-52) U/L Alkaline Phosphatase (34-104) U/L Total Protein (6.0-8.3) gm/dl Albumin (3.4-5.0) gm/dl Vitamin B12 (180-914) pg/ml Urine Color Yellow Urine Appearance Clear (Clear) Urine pH >= 9.0 H (4.5-7.5) Ur Specific [place] 1.012 (1.000-1.030) Urine Protein Negative (Negative) Urine Glucose (UA) Negative (Negative) Urine Ketones Negative (Negative) Urine Blood Negative (Negative) Urine Nitrite Negative (Negative) Urine Bilirubin Negative (Negative) Urine Urobilinogen Negative (Negative) Ur Leukocyte Esterase Negative (Negative) PG Care Time/CCT Total # of Minutes Spent Total Time Spent with Patient: Total time spent is greater than 50% in coordination of care (as documented) at patient's floor/unit and/or counseling patient: Coding
--- NOTE | 2021-12-03 09:18 | Discharge Summary ---
Date of Service December 03, 2021 Admission HPI Per Admitting Provider Day Wu is an 86-year-old female with past medical history of hypertension, hyperlipidemia, hypothyroidism, peripheral neuropathy, GERD, laryngeal cancer, who presents to [facility] due to bilateral lower extremity pain and swelling for the past few days. Patient was initially seen as an outpatient for cellulitis of the right leg the first week of October. She was treated with Keflex at that time. Shortly after, patient had visited ED in [place] due to concerns Keflex had not been working and was started on clindamycin. She presented to our ED on November 02 due to continued symptoms. At that visit, she stated that she had stopped taking the clindamycin due to stomach upset. She was discharged from our ED on doxycycline. On November 11, was seen by her primary care provider and the cellulitis of her leg was believed to have resolved. Today, patient presents with complaints of bilateral leg pain and swelling. Intensity is about 7/10, and she has noticed that her legs are redder than usual. She has not had any other associated symptoms including fever, chills, nausea, vomiting, abdominal pain, chest pain, palpitations, shortness of breath, cough, headache, dizziness. In our ED today, patient was given acetaminophen 1000 mg p.o. x1, and received a dose of cefepime. Blood cultures were drawn prior to antibiotic initiation. She had a venous Doppler of the bilateral lower extremities showing an occlusive DVT in one of the paired left popliteal veins. Remaining deep veins of the left lower extremity and right lower extremity were clear. She had a chest x-ray showing no active disease in the chest and a large hiatal hernia. Lab work showed normal white count, normal hemoglobin, normal platelets, normal electrolytes, mild elevation in alk phos to 106, and TSH of 4.492. At the time of my evaluation, patient continued to report some tenderness to the bilateral lower extremities. We discussed her chronic venous stasis and how sodium intake and have a big role in this. She stated that she does not consume much salt in her diet; however, upon further questioning, patient did admit to regular consumption of canned soups and deli meats. Admission Exam Per Admitting Provider GENERAL: A&Ox3. NAD. HEENT: PERRL, EOMI. Moist mucous membranes. NECK: No JVD. No lymphadenopathy. CHEST/LUNGS: CTAB A/P. No crackles, wheezes, rales, rhonchi. HEART: RRR. No m/g/r. No carotid bruits. ABDOMEN: NT/ND, soft. BS+ x4 EXTREMITIES: 3+ swelling to knees bilaterally. Chronic skin changes/scaliness noted. Both legs red and warm. No open wounds or cuts. No seepage or drainage. SKIN: Warm and dry. No rashes or lesions. PSYCHIATRIC: Euthymic affect, no SI, no pressured speech, no hallucinations NEUROLOGIC: No FND. CN II-XII grossly intact. Principal Diagnosis Left Leg DVT, Cellulitis Discharge Exam GENERAL: A&Ox3. NAD, sitting up in chair on the phone HEENT: PERRL, EOMI. MMM NECK: No JVD. No lymphadenopathy. CHEST/LUNGS: poor inspiratory effort, but CTAB, bibasilar crackles, no wh eezing/rales, on room air HEART: RRR. No m/g/r. No carotid bruits. ABDOMEN: NT/ND, soft. BS+ x4 EXTREMITIES: 1-2+ swelling to knees bilaterally with chronic skin changes, both legs red and warm (improved and receding from markings placed day prior, less tender), no open cuts/drainage lesions. LLE calf edema > RLE. Less tender as well SKIN: b/l chronic venous stasis changes, along with erythema/warmth (decreased erythema, within markings, less tender to palpation) PSYCHIATRIC: Euthymic affect, no SI, no pressured speech, no hallucinations NEUROLOGIC: No FND. CN II-XII grossly intact. Discharge Data Allergies Allergy/AdvReac Type Severity Reaction Status Date / Time Sulfa (Sulfonamide Allergy Severe RASH Verified 12/01/21 16:15 Antibiotics) sulfamethoxazole Allergy Intermediate chest pain Verified 12/01/21 16:15 trimethoprim Allergy Intermediate chest pain Verified 12/01/21 16:15 amoxicillin Allergy Mild funny Verified 12/01/21 16:15 feeling in feet and was told she had a reaction clarithromycin Allergy Unknown CHEST PAIN Verified 12/01/21 16:15 pollen extracts Allergy Unknown hayfever Verified 12/01/21 16:15 Consultations 12/01/21 19:40 ED Decision to Admit Stat Ordered Studies 12/01/21 16:35 US venous doppler LE Stat Hospital Course (1) DVT of leg (deep venous thrombosis): Day Wu is an 86-year-old female with past medical history of hypertension, hyperlipidemia, hypothyroidism, peripheral neuropathy, GERD, laryngeal cancer, who presents to [facility] due to bilateral lower extremity pain and swelling for the past few days. Found to have DVT in the left lower extremity. Was recently seen [facility] for cellulitis, placed on Keflex, went to [place] ER, placed on Clinda for such cellulitis, then back to ER here and was sent on Doxy PO to complete course. Reportedly cellulitis resolved on PCP f/u Nov 11. --> Did reportedly have venous US RLE which was negative previously per PCP note, and that patient was also +for Flu A 11/07 and daughter reported she wasn't getting around much at all during that time DVT of LEFT leg Venous Doppler b/l LE with occlusive deep venous thrombosis identified in 1 of the paired left popliteal veins. Only possible risk factor for provoked DVT would be recent infection no hospital admission, surgery, malignancy in past 3 months (has hx laryngeal ca, treated. most recently seen by ENT last February for exophytic lesion R inferior turbinate) Less likely to be due to inherited thrombophilia as this is her first VTE and would likely have presented at a younger age, additionally patient reports no known family history of blood clots Hemodynamically stable and no current signs of respiratory compromise/PE Started on Eliquis 10mg BID x 7 days, then transition to 5mg BID for PM dose on 12/08 Monitoring on telemetry --> SR w/ 1st degree AV block, rates in 80s On room air 94%. CXR negative for acute process Sent on Eliquis 10mg x 7 days, followed by 5mg BID Updated daughter of plan on phone and also provided Rx for outpatient therapy to help with strength/conditioning Tx cellulitis as below PT/OT consults pending -- ok for d/c. Need assistance getting up 1 step -- daughter to provide help (2) Cellulitis: Chronic venous stasis, possible cellulitis. Recently completed course of abx for cellulitis as above Patient has some clear chronic changes, though does have what seems to be a more acute worsening with significant redness and warmth Blood cultures NGTD after 48 hours Marked --> improved with abx Cefepime x 1 in ER, continued on Rocephin x 2 doses(low concern for MRSA, does not live in group setting/not hospitalized recently) --> sent on extended course of Cephalexin. To f/u with PCP Elevate legs as much as possible, jennifer stockings to unaffected leg (3) Stasis dermatitis: (4) Benign essential hypertension: and HLD BP stable Continued lisinopril, atorvastatin (5) Depression: Continued duloxetine (6) Generalized anxiety disorder: with depression, on cymbalta (7) Hyperlipidemia: Continue mirabegron (8) Hypothyroidism: continued Synthroid (9) GERD without esophagitis: also has LARGE hiatal hernia on omeprazole [employer] , ordered protonix PO while inpatient (10) Allergic rhinitis: Chronic, continued home cetirizine, flonase Peripheral neuropathy/chronic pain Continued gabapentin and oxycodone as needed CODE STATUS: Conditional patient would like everything done if there is reasonable expectation of recovery, she would not want CPR or intubation if her likelihood of recovery is minimal Total Time Total Time Spent Total Time Spent (In Minutes): 40 Discharge Plan Discharge Items Patient Disposition: Home - Self-Care Reason For Visit: BLE PAIN/SWELLING, LLE DVT Discharge Diagnosis: Left Leg DVT, Cellulitis Condition on Discharge: Fair Goals: You have been hospitalized for an acute medical problem. During your stay at [facility], we have made an effort to correct the problem that brought you to the hospital while keeping you as comfortable as possible. Medications were used to bring your condition under control and your discharge instructions will include directions for any medications you should take after leaving the hospital. Please make sure you see your Primary Care Provider as part of your follow up plan. Activity: Resume your previous activity Non-emergency contact: Primary Care Provider Call non-emergency contact if: you have any medication questions, your symptoms worsen, your pain is not controlled and you have a fever Follow-up/Referrals: Mercedes Barton MD [Primary Care Provider] - 12/12/21 11:30 am Diet: Heart Healthy Addtl Attending Provider Instructions: You have been hospitalized for leg pain and found to have a blood clot in your left leg. This could have been from recent immobilization along with acute illness last month with the flu. You have been started on a blood thinner to help with this, called Eliquis, and are being sent home on the following: Eliquis 10mg by mouth TWICE daily until the morning of 12/08 and then should decrease this to 5mg by mouth twice daily for a minimum of three months. Monitor for any bleeding and alert your PCP MICKEY if this occurs. You were also being treated for a cellulitis for your lower legs. You received IV antibiotics and the redness is improving and you are being sent with a prescription to complete antibiotics with cephalexin. I realize you did receive this in the past and you had worsening of cellulitis, but you may have just needed longer course of IV antibiotics initially. You will continue this four times a day for an additional 12 days for a total of 14 days given recurrence. Please follow up with your PCP in the next 7-10 days to monitor your progress. Please return to the ER with any worsening pain, fever, shortness of breath, chest pain, or for any other symptoms concerning for you. Take care! Pending Studies at Discharge: Yes Studies:: blood cultures-- no growth to date Stand-Alone Forms: My [facility] Medications and DC Order Prescriptions: New Eliquis 5 mg Tablet 10 mg PO BID Qty: 20 RF: 0 Eliquis 5 mg Tablet 5 mg PO BID Qty: 60 RF: 1 cephalexin 500 mg capsule 500 mg PO Q6H 12 Days Qty: 48 RF: 0 Continued lisinopril 10 mg tablet 10 mg PO QPM Qty: 90 RF: 3 gabapentin 400 mg capsule 400 mg PO QID Qty: 120 RF: 5 Myrbetriq 25 mg tablet extended release 24 hr 25 mg PO QAM Qty: 30 RF: 5 fluticasone propionate [Flonase Allergy Relief] 50 mcg/actuation spray,suspension 2 spray intranasal DAILY Qty: 16 RF: 3 atorvastatin 10 mg tablet 10 mg PO QPM Qty: 90 RF: 0 duloxetine 30 mg capsule,delayed release(DR/EC) 30 mg PO QPM Qty: 30 RF: 3 oxycodone 5 mg tablet 5 mg PO Q4H PRN (Reason: pain) Qty: 150 RF: 0 calcium carbonate-vitamin D3 [Calcium 600 + D(3)] 600 mg(1,500mg) -400 unit tablet 1 tab PO BID Qty: 180 RF: 3 cranberry extract 500 mg capsule 500 mg PO QPM RF: 0 omeprazole 20 mg capsule,delayed release(DR/EC) 20 mg PO DAILY Qty: 90 RF: 3 lutein-zeaxanthin 25-5 mg capsule 1 cap PO QPM RF: 0 cetirizine 10 mg tablet 10 mg PO QPM RF: 0 levothyroxine [Synthroid] 75 mcg tablet 75 mcg PO QAM RF: 0 coenzyme Q10 [CoQ-10] 100 mg capsule 100 mg PO QPM RF: 0 ondansetron HCl 4 mg tablet 4 mg PO Q6H PRN (Reason: nausea and vomiting) Qty: 30 RF: 0 Discharge Orders: Discharge Order (Routine); Ordered 12/03/21 Ordered By: Danielle Hankins Admission Data Admit Date/Time: 12/01/21 20:59 Attending Provider: Ruslan Pereira Admit Provider: Baljeet Gautam Primary Care Provider: Mercedes Barton Other Providers: Harlan Polo Other Interventions: Discharge Summary Assessment (RN) Last Done: 12/03/21 13:40 Coding Level of Care Code D/C DAY MANAGEMENT >30 MINS Diagnoses DVT of leg (deep venous thrombosis) I82.409 Cellulitis L03.119 Laterality: unspecified laterality Site of cellulitis: extremity Site of cellulitis of extremity: lower extremity Stasis dermatitis I87.2 Laterality: left Benign essential hypertension I10 Depression F32.9 Generalized anxiety disorder F41.1 Hyperlipidemia E78.5 Hypothyroidism E03.9 GERD without esophagitis K21.9 Allergic rhinitis J30.9
[2021-12-03 11:56] VITALS: TEMP 98.6
[2021-12-03 13:41] VITALS: BP 134/76
[2021-12-08] MEDS ORDERED: APIXABAN 5 MG TABLET PO SCH (21:00)
== END 2021-12-03 15:51 | disposition home or self-care (01) | DRG 300 ==
LOC: ED 15:59 → SUATTDRO 20:59 → 2N 20:59